=== PATIENT | female | born 1950 | race Caucasian/White ===

== ENCOUNTER 2021-11-05 05:21 | Inpatient (IN) ==
[2021-11-05] MEDS ORDERED: 0.9 % SODIUM CHLORIDE 1,000 ML IV ONE ×2 (05:25→06:03)
--- NOTE | 2021-11-05 05:25 | Emergency Department Note ---
Abdominal Pain HPI General Chief Complaint: Syncope Stated Complaint: syncopy Time Seen by Provider: 11/05/21 05:25 Source: patient Mode of arrival: EMS Limitations: no limitations History of Present Illness HPI Narrative: Narrative: 71-year-old female returns to the emergency department because of syncope. The patient was seen yesterday with fever. She had a UTI. She was given ceftriaxone 1 g IV and discharged with a prescription for Keflex 500 mg p.o. 3 times daily to be begun 24 hours later. During the night the patient continued to have fever at home. At 4 AM she got up and fell down/passed out. She was shivering during the night that she is unaware of having fever at home. She denies any pain denies dysuria. She denies being hurt when she collapsed on the floor. 911 was called and the patient was transported to our facility. Patient states she feels lightheaded (patient noted to have low blood pressure). States she did not feel well getting up at home because it made her lightheaded again. Symptoms have been constant after awakening tonight with this. Nothing has made it better so far except staying supine. No associated pain. Related Data Home Medications Medication Instructions Recorded Confirmed antiarthritic combination no.2 900 900 mg PO BID 07/06/17 10/28/21 mg tablet (glucosamine-chondroitin) calcium carbonate 500 mg-vitamin 1 tab PO BID 07/06/17 10/28/21 D3 10 mcg (400 unit) tablet (Calcium 500 + D) ginkgo biloba 40 mg capsule 40 mg PO BID 07/06/17 10/28/21 omega-3 fatty acids 1,000 mg 1,000 mg PO QDAY 07/06/17 10/28/21 capsule (Fish Oil Concentrate) colestipol 1 gram tablet 1 g PO .COMPLEX tab 10/23/19 10/28/21 Previous Rx's Medication Instructions Recorded estradiol 1 mg tablet 1 mg PO QDAY #90 tab 10/21/20 ibuprofen 600 mg tablet 600 mg PO Q8H PRN #20 tab 12/17/20 triamterene 37.5 1 tab PO QDAY #90 tab 01/02/21 mg-hydrochlorothiazide 25 mg tablet pravastatin 10 mg tablet 10 mg PO QHS #90 tab 03/17/21 amlodipine 5 mg tablet 5 mg PO QDAY #90 tab 06/12/21 duloxetine 40 mg capsule,delayed 40 mg PO QDAY #90 cap 08/26/21 release ondansetron 4 mg disintegrating 4 mg PO Q8H PRN #30 tab 09/22/21 tablet potassium chloride 10 mEq 10 meq PO QDAY #90 tab 10/20/21 tablet,extended release cephalexin 500 mg capsule 500 mg PO TID #20 cap 11/04/21 ondansetron 4 mg disintegrating 4 mg PO Q8H PRN #6 tab 11/04/21 tablet Allergies Allergy/AdvReac Type Severity Reaction Status Date / Time dexamethasone [From Decadron] AdvReac Severe Flushing,pa Verified 11/05/21 05:29 in metoclopramide [From Reglan] AdvReac Severe Shakiness Verified 11/05/21 05:29 hydrocodone AdvReac Mild vomiting Verified 11/05/21 05:29 tramadol AdvReac Vomiting Verified 11/05/21 05:29 Review of Systems ROS ROS Narrative: Narrative: Constitutional: Reports fever Eyes: Denies eye pain ENT ED: Denies throat pain or rhinorrhea Cardiovascular: Denies chest pain Respiratory: Denies shortness of breath or cough Gastrointestinal: Denies abdominal pain, nausea or vomiting Genitourinary: Denies dysuria Musculoskeletal: Reports back pain (Mild bilateral lumbar pain.) Integumentary: Denies rash Neurological: Reports headache Psychiatric: Denies anxiety Allergic/Immunologic: Denies facial swelling PFSH Narrative Patient History Narrative: Narrative: Medical/Surgical/Family History All Active Problems (Updated 11/05/21 @ 07:47 by José Miguel Beckett MD) Sepsis due to urinary tract infection (Acute) Sepsis due to urinary tract infection (Acute) 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) Acute neck pain (Acute) Medicare annual wellness visit, initial (Acute) Osteoarthritis of right hip (Acute) Weight loss (Acute) Motion sickness (Chronic) Tubular adenoma (Chronic) Myofascial pain (Chronic) Vaginal prolapse (Chronic) Stress (Chronic) Hip pain (Chronic) Pelvic relaxation (Chronic) Thoracic back pain (Acute) Back pain (Chronic) Intentional weight loss (Chronic) Seborrheic keratoses (Chronic) Enterocele (Chronic) Rectocele (Chronic) Neck pain (Chronic) Osteoarthritis (Chronic) Rectal irritation (Chronic) 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) Greater trochanteric bursitis of right hip (Chronic) Cervical spinal stenosis (Chronic) Greater trochanteric bursitis of both hips (Chronic) History of colonoscopy (Chronic) Positional vertigo (Chronic) Vasomotor instability (Chronic) Seborrheic dermatitis (Chronic) Rosacea (Chronic) Rectocele (Chronic) Proctitis (Chronic) Pelvic relaxation (Chronic) Paresthesia (Chronic) Hypertension, essential (Chronic) Hyperlipidemia (Chronic) Hormone replacement therapy (Chronic) Fibrocystic breast disease (Chronic) Fatigue (Chronic) Dermatitis (Chronic) Cystocele (Chronic) Chest pain (Chronic) Bursitis (Chronic) Medical History Back pain Much improved on Cymbalta She also takes ibuprofen 600 mg once daily Bursitis Greater trochanteric Cervical radiculopathy Cervical spinal stenosis Consider referral back to [facility] if exacerbations increase in frequency or worsen. Chest pain Intermittent atypical Cystocele Dermatitis Facial and Arm Diarrhea Resolved. She had her surgery to repair her pelvic prolapse, and this resolved her diarrhea. Drug-induced nausea and vomiting Enterocele Fatigue Fibrocystic breast disease History of Foraminal stenosis of cervical region Left C4-5 & C5-6 Greater trochanteric bursitis of both hips Corticosteroid injections to bilateral bursas today. Tolerated well. Greater trochanteric bursitis of right hip Received a dose of morphine in the ER last month, which helped at the time, and states that she is doing well now Steroid injections help when needed History of ovarian cancer Hormone replacement therapy She continues on HRT for hot flashes, understands the potential risks, and does not want to reduce the dose Hyperlipidemia Well-controlled on pravastatin 10 mg nightly. Tolerated well. Hypertension, essential Well-controlled on amlodipine 10 mg daily and triamterenehydrochlorothiazide 37.5-25 mg daily. Slightly overtreated. Decrease amlodipine to 5 mg daily and monitor blood pressure once every week or 2. Goal of around 120-130/80. Hypokalemia Potassium 3.0 ER last month Likely secondary to diuretics Start KCl 10 mEq daily We will check potassium today also Hyponatremia Hyponatremia Inflamed seborrheic keratosis Right shoulder. Treated with cryotherapy today. Tolerated well. Intentional weight loss 37 pounds Medicare annual wellness visit, initial Motion sickness Long history of nausea. Patient takes Zofran occasionally which helps. Muscle pain Muscle spasms Neck pain Much improved on Cymbalta She also takes ibuprofen 600 mg once daily Osteoarthritis Osteoarthritis cervical spine Left trapezius pain. Paresthesia Pelvic relaxation Personal history of ovarian cancer Remote History Positional vertigo Proctitis Ulcerative Rectal irritation Recurring Rectocele Rectocele Rosacea Seborrheic dermatitis Vasomotor instability Patient understands risks of taking estradiol is hormone replacement therapy, and wants to continue. Weight loss Approximately 40 pound weight loss, which is partly intentional. She states the last 10 pounds were unintentional. She states that his now plateaued. Weight does appear to be stable over the last several months. Patient will continue to monitor weight at home. Surgical History History of cataract surgery 2012 bilateral History of colonoscopy 05/27/2012 Micro: Hyperplastic Polyp. [address] Sandoval. 03/01/2019 TA. 3-year follow-up. 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 Right Upper Chin Lesion: Neurotized Intradermal Nevus, Nevus cells present at lateral resection margin. History of tonsillectomy Family History Father Chronic obstructive pulmonary disease Mother Cardiac disease Social History Smoking Status: Never smoker Alcohol Intake Frequency: does not drink Substance Use: does not use Exam Narrative Narrative: Narrative: Elderly female lying in bed with the sense of spinning in her head while her blood pressure had an MAP of 40. Patient was communicative and appropriate. No tenderness with examination of the head General Limitations: no limitations General appearance: Present alert and in distress Head Head: Present atraumatic, normocephalic, normal inspection and other (I did not find any signs of trauma.) Eye Eye: Present normal appearance, PERRL, EOMI, miosis (constriction) and other (Discs sharp); Absent nystagmus or periorbital swelling ENT ENT: Present normal oropharynx, mucous membranes dry and TM's normal bilaterally Neck Neck: Present normal inspection and trachea midline Respiratory Respiratory: Present normal lung sounds bilaterally; Absent respiratory distress Cardiovascular Cardiovascular: Present regular rate and normal rhythm Adbominal Abdominal: Present soft; Absent distention, tenderness, guarding, rebound or rigidity Extremities Extremities: Present normal inspection; Absent tenderness Back Back: Present L-S tenderness Neurological Neurological: Present alert and oriented X3; Absent normal gait Psychiatric Psychiatric: Present normal affect and normal mood Skin Skin: Present warm (WNL) and dry Course Vital Signs Vital signs: Vital Signs Temperature 101.8 F H 11/05/21 05:22 Pulse Rate 73 11/05/21 05:22 Respiratory Rate 20 11/05/21 05:22 Blood Pressure 87/44 11/05/21 05:22 Pulse Oximetry (%) 94 11/05/21 05:22 Temperature 101.8 F H 11/05/21 07:43 Pulse Rate 109 H 11/05/21 07:32 Respiratory Rate 27 H 11/05/21 07:32 Blood Pressure 130/88 11/05/21 07:32 Pulse Oximetry (%) 100 11/05/21 07:[address] [facility] MDM Narrative Medical decision making narrative: Narrative: Elderly female seen in the emergency department 1 day before with a diagnosis of UTI and fever. Treated with ceftriaxone IV 1 g. Patient was feeling much better and wished to go home. Was discharged. Patient ambulated without assistance at that time. Patient now with dizziness/syncope at home with very low blood pressure. Differential diagnosis includes sepsis, he urosepsis, stroke, intracranial bleed, dehydration, infected kidney stone, other. IV was established in the ambulance and patient was bolused 500 mL prior to arrival. On arrival she was bolused an additional 2000 milliliters of normal saline to achieve greater than 30 mL/kg of normal saline for this 60 kg woman. Blood pressure was noted to be low with initial blood pressure of 87/44. Repeat blood pressure was 52/40 with an MAP of 45. Levophed was then ordered and begun with a recheck blood pressure of 80/39 prior to instituting it. Blood pressure was 139/64 the first time it was checked after the initiation of Levophed. Blood cultures CBC CMP and lactic acid were ordered and are pending. EKG showed a sinus rhythm of 72 with no ischemic changes. Chest x-ray showed borderline cardiomegaly. No acute infiltrates or effusions noted. No acute pathology appreciated. Pending radiology review. Patient rechecked at 0635 with blood pressure at 139/64; patient stated that dijyoti ziness was much improved for the last 5 or 10 minutes. Patient will have Zosyn administered followed by Андрей. Patient will be given 975 mg of acetaminophen p.o. Covid test and influenza test have been ordered (Yessi). CBC showed a white count of 18,600. 81% neutrophils, 5% lymphocytes, 14% mo nocytes. Hemoglobin was low at 10.2 with hematocrit of 29.4 platelet count 247k. CMP, lactic acid, UA, still pending. Covid test negative influenza A negative influenza B negative. 0745: Case discussed with Dr. Nur, the hospitalist. He accepts the patient and will admit to the hospital for further care. Lab Data Result diagrams: 11/05/21 05:28 11/05/21 05:28 Labs: Lab Results 11/05/21 11/05/21 11/05/21 Range/Units 04:45 05:28 05:28 WBC 18.6 H (4.5-11.0) K/mcL RBC 3.22 L (3.59-5.38) M/mcL Hgb 10.2 L (11.2-15.7) g/dL Hct 29.4 L (34.1-44.9) % MCV 91.3 (80.0-100.0) fL MCH 31.7 (26.0-34.0) pg MCHC 34.7 (31.0-36.0) g/dL RDW 13.0 (11.5-14.5) % Plt Count 242 (140-440) K/mcL MPV 10.2 (7.4-10.4) fL Neut % (Auto) 80.7 H (38.0-78.0) % Lymph % (Auto) 4.7 L (15.5-49.0) % [place] % (Auto) 13.9 H (1.0-12.0) % Eos % (Auto) 0.4 (0.0-7.0) % Baso % (Auto) 0.3 (0.0-2.0) % Lymph # (Auto) 0.88 L (1.50-4.80) K/mcL [place] # (Auto) 2.58 H (0.10-0.90) K/mcL Eos # (Auto) 0.08 (0.00-0.70) K/mcL Baso # (Auto) 0.05 (0.00-0.30) K/mcL Absolute Neutrophils 15.00 H (1.80-8.00) K/mcL Sodium 130 L (133-145) mmol/L Potassium 3.1 L (3.3-5.1) mmol/L Chloride 97 (96-108) mmol/L Carbon Dioxide 23 (22-30) mmol/L Anion Gap 10.0 (8.0-16.0) BUN 11 (8-23) mg/dL Creatinine 0.9 (0.6-1.1) mg/dL GFR Calculation 63 Glucose 121 H (70-105) mg/dL Calcium 7.6 L (8.6-10.4) mg/dL Total Bilirubin 0.4 (0.1-1.0) mg/dL AST 25 (<32) U/L ALT 21 (<40) U/L Alkaline Phosphatase 50 (39-117) U/L Lactate Dehydrogenase 123 L (135-225) U/L Total Protein 5.2 L (5.9-8.4) gm/dL Albumin 3.0 L (3.2-5.2) gm/dL Globulin 2.2 (2.2-3.7) gm/dL Albumin/Globulin Ratio 1.4 (1.0-2.3) Urine Color Yellow Urine Appearance Slightly cloudy A (Clear) Urine pH 6.5 (5.0-9.0) Ur Specific [place] 1.015 (1.000-1.035) Urine Protein Trace A (Negative) mg/dL Urine Glucose (UA) Negative (Negative) mg/dL Urine Ketones Negative (Negative) mg/dL Urine Occult Blood Moderate A (Negative) raheem/mcL Urine Nitrate Negative (Negative) Urine Bilirubin Negative (Negative) mg/dL Urine Urobilinogen Normal mg/dL Ur Leukocyte Esterase Moderate A (Negative) /uL Urine RBC 10 H (0-3) /hpf Urine WBC > 182 H (0-4) /hpf Ur Squamous Epith Cells 0 (0-4) /hpf Ur Transition Epith Cell 1 (0-2) /hpf Urine Bacteria None (0) /hpf Ur Culture Indicated? yes ED POC Tests ED POC Tests: ALEX - Influenza A Negative ALEX - Influenza B Negative ALEX - SARS Antigen Negative EKG Data EKG #1: EKG attestation: Yes I reviewed and interpreted this EKG. 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 hold until patient requests refill duloxetine 40 mg capsule,delayed release(DR/EC) 40 mg PO QDAY Qty: 90 3RF ondansetron 4 mg tablet,disintegrating 4 mg PO Q8H PRN (Reason: nausea and vomiting) Qty: 30 1RF potassium chloride 10 mEq tablet extended release 10 meq PO QDAY Qty: 90 3RF omega-3 fatty acids [Fish Oil Concentrate] 1,000 mg capsule 1,000 mg PO QDAY 0RF calcium carbonate-vitamin D3 [Calcium 500 + D] 500 mg(1,250mg) -400 unit tablet 1 tab PO BID 0RF antiarthritic combination no.2 [glucosamine-chondroitin] 900 mg tablet 900 mg PO BID 0RF ginkgo biloba 40 mg capsule 40 mg PO BID 0RF colestipol 1 gram tablet 1 g PO .COMPLEX 0RF Label Comments: Rx from Michelle Mustafa Rx Instructions: 1 g PO 2-6x daily; ibuprofen 600 mg tablet 600 mg PO Q8H PRN (Reason: pain) Qty: 20 0RF cephalexin 500 mg capsule 500 mg PO TID Qty: 20 0RF ondansetron 4 mg tablet,disintegrating 4 mg PO Q8H PRN (Reason: nausea and vomiting) Qty: 6 0RF
[2021-11-05] MEDS ORDERED: 0.9 % SODIUM CHLORIDE 500 ML IV ONE (06:00)
[2021-11-05] MEDS ORDERED: PIPERACILLIN SODIUM/TAZOBACTAM 3.375 GM in DEXTROSE 5% IN WATER 50 ML IV ONE (06:10)
[2021-11-05] MEDS ORDERED: VANCOMYCIN 1,000 MG in 0.9 % SODIUM CHLORIDE 250 ML IV ONE (06:10)
[2021-11-05] MEDS: NOREPINEPHRINE BITARTRATE 8 MG in 0.9 % SODIUM CHLORIDE 242 ML IV SCH (06:11)
[2021-11-05 06:49] LABS: Basophils # (Auto) 0.05 K/mcL (0.00-0.30); Basophils % (Auto) 0.3 % (0.0-2.0); Eosinophils # (Auto) 0.08 K/mcL (0.00-0.70); Eosinophils % (Auto) 0.4 % (0.0-7.0); Hematocrit 29.4 % (34.1-44.9); Hemoglobin 10.2 g/dL (11.2-15.7); Lymphocytes # (Auto) 0.88 K/mcL (1.50-4.80); Lymphocytes % (Auto) 4.7 % (15.5-49.0); Mean Cell Volume 91.3 fL (80.0-100.0); Mean Corpuscular HGB Conc 34.7 g/dL (31.0-36.0); Mean Platelet Volume 10.2 fL (7.4-10.4); Monocytes # (Auto) 2.58 K/mcL (0.10-0.90); Monocytes % (Auto) 13.9 % (1.0-12.0); Neutrophils % (Auto) 80.7 % (38.0-78.0); Platelet Count 242 K/mcL (140-440); RBC 3.22 M/mcL (3.59-5.38); WBC 18.6 K/mcL (4.5-11.0)
[2021-11-05] MEDS ORDERED: ACETAMINOPHEN 325 MG TABLET PO ONE ×2 (06:52→19:48)
[2021-11-05 06:55] LABS: Appearance,Urine Slightly Cloudy (Clear); Bilirubin,Urine Negative (Negative); Color,Urine Yellow; Culture Indicated,Urine yes; Glucose,Urine (UA) Negative (Negative); Ketones,Urine Negative (Negative); Leukocyte Esterase,Urine Moderate /uL (Negative); Nitrate,Urine Negative (Negative); PH,Urine 6.5 (5.0-9.0); Protein,Urine Trace mg/dL (Negative); Specific Gravity,Urine 1.015 (1.000-1.035); Urine Blood Moderate ery/mcL (Negative); Urine RBC 10 /hpf (0-3); Urine Squamous Epithelial Cell 0 /hpf (0-4); Urine Transitional Epi Cells 1 /hpf (0-2); Urine WBC > 182 /hpf (0-4); Urobilinogen,Urine Normal
[2021-11-05 07:17] LABS: ALT/SGPT 21 U/L (<40); AST/SGOT 25 U/L (<32); Albumin/Globulin Ratio 1.4 (1.0-2.3); Alkaline Phosphatase 50 U/L (39-117); Bilirubin,Total 0.4 mg/dL (0.1-1.0); Blood Urea Nitrogen 11 mg/dL (8-23); Calcium 7.6 mg/dL (8.6-10.4); Carbon Dioxide 23 mmol/L (22-30); Chloride 97 mmol/L (96-108); Globulin 2.2 gm/dL (2.2-3.7); Glomerular Filtration Rate 63; Glucose 121 mg/dL (70-105); Lactate Dehydrogenase 123 U/L (135-225)
[2021-11-05] MEDS ORDERED: ACETAMINOPHEN 1,000 MG/100 ML BAG IV ONE (07:35)
[2021-11-05] MEDS ORDERED: ONDANSETRON 4 MG/2 ML VIAL IV ONE (07:35)
[2021-11-05] MEDS: 0.9 % SODIUM CHLORIDE 250 ML IV SCH ×2 (07:53→23:14)
--- NOTE | 2021-11-05 08:17 | Internal Med History&Physical ---
HPI History of Present Illness Patient information: Note initiated : 11/05/21 at 8:05 am Service Date, if different from initiated Date: [] Patient: Florecita Branch a 71 y/o F admitted on for Syncope . Chief Complaint: [Shivering Chief complaint: Shivering History of present illness: Ms. Branch is a 71 year old F history of generalized osteoarthritis, essential HTN, mixed dyslipidemia, uterine prolapse, presenting with 2-day history of shivering and upper back pain. There is no prior similar history. No recent history of urinary tract infections. She presented to our ED yesterday for shivering and upper back pain and was being diagnosed with urinary tract infections. She received a dose of Rocephin and was sent home. Earlier this morning she could not stop shivering together with subjective fever. She is also committing of nausea. She is coming of upper back pain. She called EMS which brought her back to our ED for reevaluations. Her blood pressure was found to be low so she was started on Levophed as pressor. 30 cc/kg IV fluid boluses were started as part of the resuscitation's measures and admission request was called for pyelonephritis with septic shock. Labs significant for leukocytosis with WBC 18.6. Serum sodium 130 and serum potassium 3.1. Blood glucose 121. Lactic acid pending. Urine analysis suggest the presence of urinary tract infections. Constitutional Constitutional: Present chills and fever(s); Absent excessive sweating, fatigue or weakness EENT Eyes: Absent blurry vision, change in vision, loss of vision or other visual disturbances Ears: Absent decreased hearing or tinnitus Nose, mouth and throat: Absent abnormal hearing, dry mouth, headache(s), nasal congestion or sore throat Cardiovascular Cardiovascular: Absent chest pain, chest pain at rest, edema, irregular heart rhythm or palpatations Respiratory Respiratory: Absent cough, dyspnea or wheezing Gastrointestinal Gastrointestinal: Present nausea; Absent abdominal pain, constipation, diarrhea or vomiting Musculoskeletal Musculoskeletal: Present back pain; Absent deformity, limited range of motion, muscle cramps, muscle weakness or numbness Integumentary Integumentary: Absent lesions, rash or wounds Neurological Neurological: Absent focal weakness, headache(s) or numbness Psychiatric Psychiatric: Absent anxiety, depression or hallucinations PFSH PFSH All Active Problems (Updated 11/05/21 @ 08:12 by Kashif Nur MD) Anemia, normocytic normochromic (Acute) Hypokalemia (Acute) Hyponatremia (Acute) Septic shock (Acute) Pyelonephritis (Acute) Sepsis due to urinary tract infection (Acute) Sepsis due to urinary tract infection (Acute) 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) Acute neck pain (Acute) Medicare annual wellness visit, initial (Acute) Osteoarthritis of right hip (Acute) Weight loss (Acute) Motion sickness (Chronic) Tubular adenoma (Chronic) Myofascial pain (Chronic) Vaginal prolapse (Chronic) Stress (Chronic) Hip pain (Chronic) Pelvic relaxation (Chronic) Thoracic back pain (Acute) Back pain (Chronic) Intentional weight loss (Chronic) Seborrheic keratoses (Chronic) Enterocele (Chronic) Rectocele (Chronic) Neck pain (Chronic) Osteoarthritis (Chronic) Rectal irritation (Chronic) 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) Greater trochanteric bursitis of right hip (Chronic) Cervical spinal stenosis (Chronic) Greater trochanteric bursitis of both hips (Chronic) History of colonoscopy (Chronic) Positional vertigo (Chronic) Vasomotor instability (Chronic) Seborrheic dermatitis (Chronic) Rosacea (Chronic) Rectocele (Chronic) Proctitis (Chronic) Pelvic relaxation (Chronic) Paresthesia (Chronic) Hypertension, essential (Chronic) Hyperlipidemia (Chronic) Hormone replacement therapy (Chronic) Fibrocystic breast disease (Chronic) Fatigue (Chronic) Dermatitis (Chronic) Cystocele (Chronic) Chest pain (Chronic) Bursitis (Chronic) Medical History Back pain Much improved on Cymbalta She also takes ibuprofen 600 mg once daily Bursitis Greater trochanteric Cervical radiculopathy Cervical spinal stenosis Consider referral back to [facility] if exacerbations increase in frequency or worsen. Chest pain Intermittent atypical Cystocele Dermatitis Facial and Arm Diarrhea Resolved. She had her surgery to repair her pelvic prolapse, and this resolv ed her diarrhea. Drug-induced nausea and vomiting Enterocele Fatigue Fibrocystic breast disease History of Foraminal stenosis of cervical region Left C4-5 & C5-6 Greater trochanteric bursitis of both hips Corticosteroid injections to bilateral bursas today. Tolerated well. Greater trochanteric bursitis of right hip Received a dose of morphine in the ER last month, which helped at the time, and states that she is doing well now Steroid injections help when needed History of ovarian cancer Hormone replacement therapy She continues on HRT for hot flashes, understands the potential risks, and does not want to reduce the dose Hyperlipidemia Well-controlled on pravastatin 10 mg nightly. Tolerated well. Hypertension, essential Well-controlled on amlodipine 10 mg daily and triamterenehydrochlorothiazide 37.5-25 mg daily. Slightly overtreated. Decrease amlodipine to 5 mg daily and monitor blood pressure once every week or 2. Goal of around 120-130/80. Hypokalemia Potassium 3.0 ER last month Likely secondary to diuretics Start KCl 10 mEq daily We will check potassium today also Hyponatremia Hyponatremia Inflamed seborrheic keratosis Right shoulder. Treated with cryotherapy today. Tolerated well. Intentional weight loss 37 pounds Medicare annual wellness visit, initial Motion sickness Long history of nausea. Patient takes Zofran occasionally which helps. Muscle pain Muscle spasms Neck pain Much improved on Cymbalta She also takes ibuprofen 600 mg once daily Osteoarthritis Osteoarthritis cervical spine Left trapezius pain. Paresthesia Pelvic relaxation Personal history of ovarian cancer Remote History Positional vertigo Proctitis Ulcerative Rectal irritation Recurring Rectocele Rectocele Rosacea Seborrheic dermatitis Vasomotor instability Patient understands risks of taking estradiol is hormone replacement therapy, and wants to continue. Weight loss Approximately 40 pound weight loss, which is partly intentional. She states the last 10 pounds were unintentional. She states that his now plateaued. Weight does appear to be stable over the last several months. Patient will continue to monitor weight at home. Surgical History History of cataract surgery 2012 bilateral History of colonoscopy 05/27/2012 Micro: Hyperplastic Polyp. [address] Sandoval. 03/01/2019 TA. 3-year follow-up. 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 Right Upper Chin Lesion: Neurotized Intradermal Nevus, Nevus cells present at lateral resection margin. History of tonsillectomy Family History Father Chronic obstructive pulmonary disease Mother Cardiac disease Social History household members: spouse housing: house lives independently: Yes marital status: education level: college occupational status: retired occupation: teacher other: 2 Adult Children, 4 Grandchildren smoking status: Never smoker alcohol intake frequency: does not drink substance use type: does not use MEDS/ALLERGIES Home Medications and Allergies Home Medications Medication Instructions Recorded Confirmed Type antiarthritic combination no.2 900 900 mg PO BID 07/06/17 10/28/21 History mg tablet (glucosamine-chondroitin) calcium carbonate 500 mg-vitamin 1 tab PO BID 07/06/17 10/28/21 History D3 10 mcg (400 unit) tablet (Calcium 500 + D) ginkgo biloba 40 mg capsule 40 mg PO BID 07/06/17 10/28/21 History omega-3 fatty acids 1,000 mg 1,000 mg PO QDAY 07/06/17 10/28/21 History capsule (Fish Oil Concentrate) colestipol 1 gram tablet 1 g PO .COMPLEX tab 10/23/19 10/28/21 History estradiol 1 mg tablet 1 mg PO QDAY #90 tab 10/21/20 10/28/21 Rx ibuprofen 600 mg tablet 600 mg PO Q8H PRN #20 tab 12/17/20 10/28/21 Rx triamterene 37.5 1 tab PO QDAY #90 tab 01/02/21 10/28/21 Rx mg-hydrochlorothiazide 25 mg tablet pravastatin 10 mg tablet 10 mg PO QHS #90 tab 03/17/21 10/28/21 Rx amlodipine 5 mg tablet 5 mg PO QDAY #90 tab 06/12/21 10/28/21 Rx duloxetine 40 mg capsule,delayed 40 mg PO QDAY #90 cap 08/26/21 10/28/21 Rx release ondansetron 4 mg disintegrating 4 mg PO Q8H PRN #30 tab 09/22/21 10/28/21 Rx tablet potassium chloride 10 mEq 10 meq PO QDAY #90 tab 10/20/21 10/28/21 Rx tablet,extended release cephalexin 500 mg capsule 500 mg PO TID #20 cap 11/04/21 Rx ondansetron 4 mg disintegrating 4 mg PO Q8H PRN #6 tab 11/04/21 Rx tablet Allergies Allergy/AdvReac Type Severity Reaction Status Date / Time dexamethasone [From Decadron] AdvReac Severe Flushing,pa Verified 11/05/21 05:29 in metoclopramide [From Reglan] AdvReac Severe Shakiness Verified 11/05/21 05:29 hydrocodone AdvReac Mild vomiting Verified 11/05/21 05:29 tramadol AdvReac Vomiting Verified 11/05/21 05:29 EXAM Constitutional Vitals: Temp Pulse Resp BP Pulse Ox 38.8 C H 108 H 27 H 132/54 96 11/05/21 07:43 11/05/21 08:01 11/05/21 08:01 11/05/21 08:01 11/05/21 08:01 General appearance: cooperative and moderate distress Exam: shivering Head Head exam: Present atraumatic and normocephalic Eye Eye exam: Present EOMI and PERRL ENT ENT exam: Present mucous membranes moist, normal exam and normal external ear exam Neck Neck exam: Present normal inspection; Absent lymphadenopathy, tenderness or thyromegaly Respiratory Respiratory exam: Absent accessory muscle use, respiratory distress or wheezes Cardiovascular Cardiovascular exam: Present normal rate and rhythm; Absent JVD GI/Abdominal GI/Abdominal exam: Present normal bowel sounds and soft; Absent organomegaly or tenderness Extremities Exam Extremities exam: Present full ROM, normal capillary refill and normal inspection; Absent tenderness Neurological Exam Neurological exam: Present alert, CN II-XII intact and oriented X3; Absent motor sensory deficit Psychiatric Psychiatric exam: Present normal affect and normal mood; Absent anxious or depressed Skin Skin exam: Present dry and intact DATA Data Completed and Pending Labs: Labs from last 24 hours 11/05/21 11/05/21 11/05/21 05:28 05:28 04:45 WBC 18.6 H RBC 3.22 L Hgb 10.2 L Hct 29.4 L MCV 91.3 MCH 31.7 MCHC 34.7 RDW 13.0 Plt Count 242 MPV 10.2 Neut % (Auto) 80.7 H Lymph % (Auto) 4.7 L [place] % (Auto) 13.9 H Eos % (Auto) 0.4 Baso % (Auto) 0.3 Lymph # (Auto) 0.88 L [place] # (Auto) 2.58 H Eos # (Auto) 0.08 Baso # (Auto) 0.05 Absolute Neutrophils 15.00 H Sodium 130 L Potassium 3.1 L Chloride 97 Carbon Dioxide 23 Anion Gap 10.0 BUN 11 Creatinine 0.9 GFR Calculation 63 Glucose 121 H Calcium 7.6 L Total Bilirubin 0.4 AST 25 ALT 21 Alkaline Phosphatase 50 Lactate Dehydrogenase 123 L Total Protein 5.2 L Albumin 3.0 L Globulin 2.2 Albumin/Globulin Ratio 1.4 Urine Color Yellow Urine Appearance Slightly cloudy A Urine pH 6.5 Ur Specific [place] 1.015 Urine Protein Trace A Urine Glucose (UA) Negative Urine Ketones Negative Urine Occult Blood Moderate A Urine Nitrate Negative Urine Bilirubin Negative Urine Urobilinogen Normal Ur Leukocyte Esterase Moderate A Urine RBC 10 H Urine WBC > 182 H Ur Squamous Epith Cells 0 Ur Transition Epith Cell 1 Urine Bacteria None Ur Culture Indicated? yes A/P Assessment and plan (1) Pyelonephritis: Status: Acute (2) Septic shock: Status: Acute (3) Osteoarthritis: Status: Chronic Qualifiers: Osteoarthritis location: multiple joints Osteoarthritis type: primary Qualified Code(s): M15.0 - Primary generalized (osteo)arthritis; M15.0 - Primary generalized (osteo)arthritis (4) Hyperlipidemia: Status: Chronic Comment: Well-controlled on pravastatin 10 mg nightly. Tolerated well. Qualifiers: Hyperlipidemia type: mixed hyperlipidemia Qualified Code(s): E78.2 - Mixed hyperlipidemia (5) Hypertension, essential: Status: Chronic Comment: Well-controlled on amlodipine 10 mg daily and triamterenehydrochlorothiazide 37.5-25 mg daily. Slightly overtreated. Decrease amlodipine to 5 mg daily and monitor blood pressure once every week or 2. Goal of around 120-130/80. (6) Hyponatremia: Status: Acute (7) Hypokalemia: Status: Acute (8) Anemia, normocytic normochromic: Status: Acute Narrative A/P Narrative: Assessment and Plans: 1. Pyelonephritis with septic shock: Admit to inpatient ICU telemetry Serial lactic acid Blood culture X2 Urine culture cbc w/ auto diff in the morning to trend WBC level 30cc/kg IV fluid bolus, followed by NS@150cc/hr Zosyn Tylenol PRN fever Levophed drip goal of MAP>=65mmHg 2. h/o essential HTN: Hold oral antihypertensives in face of septic shock 3. Mixed dyslipidemia: Continue statin therapy 4. anemia, normocytic normochromic: cbc w/ auto diff in the morning to trend H/H; transfuse pRBC if hemoglobin <7.0, active bleeding, or symptomatic 5. Hyponatremia: 30cc/kg IV fluid bolus, followed by NS@150cc/hr CMP in the morning to trend serum sodium level 6. Hypokalemia: Continue potassium chloride oral replacement CMP in the morning to trend serum potassium level Also check serum Mg level and replace if needed 7. Osteoarthritis: Continue pain meds from home regimen GI ppx: not currently indicated DVT ppx: Lovenox Code status: Full Prognosis: extremely guarded Disposition: inpatient ICU telemetry Critical Care Time: 1hr Time Spent With Patient Time: Total time spent is greater than 50% in coordination of care (as documented) at patient's floor/unit and/or counseling patient: Total time spent with greater than 50% in coordination of care (as documented) at patient's floor/unit and/or counseling patient:: Greater than 35 minutes
--- NOTE | 2021-11-05 09:08 | XRay Report ---
CLINICAL INFORMATION: Hypotension COMPARISON: 11/16/2018 TECHNIQUE: Portable FINDINGS: The heart is borderline enlarged. Mediastinum is unremarkable. There is mild distention of the upper lobe pulmonary vasculature. No definite edema. Lungs are clear. No effusions. IMPRESSION: Borderline CHF or volume overload. Please correlate with other supportive or refutive clinical information Interpreted and Authenticated by: Brent Cantu 11/05/21
[2021-11-05] MEDS: 0.9 % SODIUM CHLORIDE 1,000 ML IV SCH ×2 (10:00→19:49)
[2021-11-05] MEDS ORDERED: IPRATROPIUM/ALBUTEROL 3 ML AMPUL.NEB NEB PRN (10:03)
[2021-11-05] MEDS ORDERED: SENNOSIDES 8.8 MG/5 ML ML PT PRN (10:03)
[2021-11-05] MEDS ORDERED: COLESTIPOLL 1 GM TABLET PO PRN (10:03)
[2021-11-05] MEDS ORDERED: morphine 4 MG/ML VIAL IV PRN (10:03)
[2021-11-05 12:02] LABS: Phosphorous 1.5 mg/dL (2.5-4.5)
[2021-11-05] MEDS: PIPERACILLIN SODIUM/TAZOBACTAM 3.375 GM in DEXTROSE 5% IN WATER 50 ML IV SCH ×2 (12:07→17:34)
[2021-11-05] MEDS: ENOXAPARIN 40 MG/0.4 ML SYRINGE SQ SCH (12:07)
[2021-11-05] MEDS: POTASSIUM CHLORIDE 10 MEQ TABLET PO SCH (12:07)
[2021-11-05 12:08] LABS: ALT/SGPT 25 U/L (<40); AST/SGOT 28 U/L (<32); Albumin/Globulin Ratio 1.1 (1.0-2.3); Alkaline Phosphatase 62 U/L (39-117); Bilirubin,Total 0.8 mg/dL (0.1-1.0); Blood Urea Nitrogen 9 mg/dL (8-23); Calcium 7.3 mg/dL (8.6-10.4); Carbon Dioxide 19 mmol/L (22-30); Chloride 98 mmol/L (96-108); Globulin 2.7 gm/dL (2.2-3.7); Glomerular Filtration Rate 86; Glucose 134 mg/dL (70-105)
[2021-11-05] MEDS: DOCUSATE SODIUM 100 MG CAPSULE PO SCH ×2 (12:08→19:49)
[2021-11-05] MEDS ORDERED: POTASSIUM CHLORIDE 20 MEQ TABLET PO ONE (12:09)
[2021-11-05] MEDS ORDERED: MAGNESIUM SULFATE 2 GM/50 ML BAG IV ONE (12:10)
[2021-11-05] MEDS: ESTRADIOL 1 MG TABLET PO SCH (12:13)
[2021-11-05] MEDS: 0.9 % SODIUM CHLORIDE 10 ML SYRINGE IV SCH ×2 (13:43→23:12)
--- NOTE | 2021-11-05 14:06 | Internal Med Progress Note ---
SUBJECTIVE Subjective Patient information: Note initiated : 11/06/21 at 2:00 pm Service Date, if different from initiated Date: [] Patient: Florecita Branch a 71 y/o F admitted on 11/05/21 for Syncope . Chief Complaint: [] Interval history: Ms. Branch is a 71 year old F history of generalized osteoarthritis, essential HTN, mixed dyslipidemia, uterine prolapse, presenting with 2-day history of shivering and upper back pain. There is no prior similar history. No recent history of urinary tract infections. She presented to our ED yesterday for jackie vering and upper back pain and was being diagnosed with urinary tract infections. She received a dose of Rocephin and was sent home. Earlier this morning she could not stop shivering together with subjective fever. She is also committing of nausea. She is coming of upper back pain. She called EMS which brought her back to our ED for reevaluations. Her blood pressure was found to be low so she was started on Levophed as pressor. 30 cc/kg IV fluid boluses were started as part of the resuscitation's measures and admission request was called for pyelonephritis with septic shock. Labs significant for leukocytosis with WBC 18.6. Serum sodium 130 and serum potassium 3.1. Blood glucose 121. Lactic acid pending. Urine analysis suggest the presence of urinary tract infections. 11/06: Sepsis physiology resolving, urine and blood cultures pending. Deescalated antibiotic treatment from Zosyn to Cefepime. CT KUB ordered. Physical exam Head: Atraumatic, normal inspection. Eyes: normal appearance, no scleral icterus. Neck: full ROM Respiratory: no respiratory distress. Cardiovascular: normal rate and rhythm, S1, S2. GI/Abdominal: soft, nontender, no guarding. Extremities: full range of motion, nontender. Neurological: CN II-XII intact, intact motor, intact sensation. Psychiatric: normal mood. Skin: warm, normal color Constitutional Vitals: Vital Signs Temp Pulse Resp BP Pulse Ox 99.6 F H 88 18 112/49 99 11/05/21 12:01 11/05/21 13:31 11/05/21 13:31 11/05/21 13:31 11/05/21 13:31 Period Temp Pulse Resp BP Sys/Hamm Pulse Ox Last 24 Hr 97.4 F-102.4 F 72-109 13-27 52-141/39-88 94-100 Intake and Output 11/05/21 11/05/21 11/05/21 05:59 13:59 21:59 Intake Total 3032 Output Total 1025 Balance 2006 Weight 59.874 kg 64.909 kg Patient Weight 11/06/21 05:59 Weight 64.909 kg Intake & Output: Intake & Output 11/05/21 11/05/21 11/05/21 05:59 13:59 21:59 Intake Total 3032 Output Total 1025 Balance 2006 Weight 59.874 kg 64.909 kg Intake: IV 3032 Sodium Chloride 0.9% 1,000 ml @ 2000 Wide Open IV BOLUS ONE Rx#: [id number] Sodium Chloride 0.9% 250 ml @ 10 20 mls/hr IV .[id number] [facility] Rx#: [id number] Sodium Chloride 0.9% 500 ml @ 500 Wide Open IV BOLUS ONE Rx#: [id number] Levophed 8 mg In Sodium 72 Chloride 0.9% 242 ml @ 10 MCG/ MIN 18.75 mls/hr IV Q14H [facility] Rx #:[id number] Zosyn 3.375 gm In Dextrose 5% 100 in Water 50 ml @ 100 mls/hr IV Q6H [facility] Rx#:[id number] Vancomycin 1,000 mg In Sodium 250 Chloride 0.9% 250 ml @ 250 mls/ hr IV ONCE ONE Rx#:[id number] Output: Void Amount 1025 Other: Urine Appearance Clear Straight Cloudy Urine Color Bright Yellow Straight Dark Yellow Urine Odor Normal OBJ DATA Labs CBC & Chem 7: 11/06/21 05:08 11/06/21 05:08 Labs: Abnormal Lab Results 11/05/21 11/05/21 11/05/21 10:35 05:28 05:28 WBC 18.6 H RBC 3.22 L Hgb 10.2 L Hct 29.4 L Neut % (Auto) 80.7 H Lymph % (Auto) 4.7 L [place] % (Auto) 13.9 H Lymph # (Auto) 0.88 L [place] # (Auto) 2.58 H Absolute Neutrophils 15.00 H Sodium 130 L 130 L Potassium 2.8 L* 3.1 L Carbon Dioxide 19 L Glucose 134 H 121 H Calcium 7.3 L 7.6 L Phosphorus 1.5 L Magnesium 1.4 L Lactate Dehydrogenase 123 L Total Protein 5.7 L 5.2 L Albumin 3.0 L 3.0 L Urine Appearance Urine Protein Urine Occult Blood Ur Leukocyte Esterase Urine RBC Urine WBC 11/05/21 04:45 WBC RBC Hgb Hct Neut % (Auto) Lymph % (Auto) [place] % (Auto) Lymph # (Auto) [place] # (Auto) Absolute Neutrophils Sodium Potassium Carbon Dioxide Glucose Calcium Phosphorus Magnesium Lactate Dehydrogenase Total Protein Albumin Urine Appearance Slightly cloudy A Urine Protein Trace A Urine Occult Blood Moderate A Ur Leukocyte Esterase Moderate A Urine RBC 10 H Urine WBC > 182 H Meds: Medications Acetaminophen (Acetaminophen 325 Mg Tablet) 650 mg PO Q4-6HP PRN; Protocol PRN Reason: Per Pain Protocol/Fever > 101 Albuterol/Ipratropium (Ipratropium/Albuterol 3 Ml Ampul.Neb) 3 ml NEB Q4HRT PRN PRN Reason: Wheezing Calcium/Vitamin D (Calcium W/Vit D3 500 Mg Tablet) 500 mg PO BID [facility] Colestipol HCl (Colestipoll 1 Gm Tablet) 1 gm PO Q4HP PRN PRN Reason: Diarrhea Docusate Sodium (Docusate Sodium 100 Mg Capsule) 100 mg PO BID [facility] Last Admin: 11/05/21 12:08 Dose: 100 mg Documented by: Duloxetine HCl (Duloxetine 20 Mg Capsule) 40 mg PO DAILY [facility] Enoxaparin Sodium (Enoxaparin 40 Mg/0.4 Ml Syringe) 40 mg SQ DAILY [facility] Last Admin: 11/05/21 12:07 Dose: 40 mg Documented by: Estradiol (Estradiol 1 Mg Tablet) 1 mg PO QDAY [facility] Last Admin: 11/05/21 12:13 Dose: 1 mg Documented by: Fish Oil (Fish Oil 1,000 Mg Capsule) 1,000 mg PO DAILY [facility] Glucosamine/Chondroitin (Glucosamine/Chondroitin Sulf A 1 Cap Capsule) 1 cap PO BID [facility] Norepinephrine Bitartrate 8 mg (/ Sodium Chloride) 250 mls @ 18.75 mls/hr IV Q14H [facility]; Protocol Last Titration: 11/05/21 10:00 Dose: 6 mcg/min, 11.25 mls/hr Documented by: Sodium Chloride (Sodium Chloride 0.9%) 250 mls @ 20 mls/hr IV .[id number] [facility] Last Infusion: 11/05/21 09:52 Dose: 20 mls/hr Documented by: Sodium Chloride (Sodium Chloride 0.9%) 1,000 mls @ 150 mls/hr IV .[id number] [facility] Last Admin: 11/05/21 10:00 Dose: 150 mls/hr Documented by: Piperacillin Sod/Tazobactam (Sod 3.375 gm/ Dextrose) 50 mls @ 100 mls/hr IV Q6H [facility]; Protocol Last Infusion: 11/05/21 13:08 Dose: Infused Documented by: Magnesium Sulfate (Magnesium Sulfate) 2 gm in 50 mls @ 25 mls/hr IV ONCE ONE Stop: 11/05/21 14:09 Last Admin: 11/05/21 12:31 Dose: 25 mls/hr Documented by: Ibuprofen (Ibuprofen 600 Mg Tablet) 600 mg PO Q8H PRN; Protocol PRN Reason: pain Morphine Sulfate (Morphine 4 Mg/Ml Vial) 4 mg IV Q2HP PRN; Protocol PRN Reason: Per Pain Protocol Ondansetron HCl (Ondansetron 4 Mg/2 Ml Vial) 4 mg IV Q4-6HP PRN; Protocol PRN Reason: Nausea And Vomiting Ginkgo Biloba 40 Mg (Capsule) 1 dose PO BID [facility] Potassium Chloride (Potassium Chloride 10 Meq Tablet) 10 meq PO QDAY [facility] Last Admin: 11/05/21 12:07 Dose: 10 meq Documented by: Potassium/Phosphorus/Sodium (Neutra Phos 1 Packet) 2 packet PO BID [facility] Stop: 11/06/21 21:01 Senna (Sennosides 8.8 Mg/5 Ml Ml) 8.8 mg PT DAILYP PRN PRN Reason: Constipation Simvastatin (Simvastatin 10 Mg Tablet) 5 mg PO HS [facility] Sodium Chloride (0.9 % Sodium Chloride 10 Ml Syringe) 10 ml IV Q8 [facility] Last Admin: 11/05/21 13:43 Dose: Not Given Documented by: A/P Narrative A/P Narrative: Assessment: 71-year-old female with a history of hypertension, dyslipidemia, ut erine prolapse, osteoarthritis admitted for sepsis secondary to a pyelonephritis. #Sepsis secondary to pyelonephritis #Hypokalemia #Hypomagnesemia #Hypophosphatemia #Hyponatremia #Essential hypertension #Dyslipidemia #Osteoarthritis Plan -Start Cefepime, discontinue Zosyn. -Discontinue IV fluids. -Follow blood and urine cultures. -CT KUB to evaluate for ureteral stones. -Replace electrolytes as needed. -Hold home oral antihypertensives for now. -Continue essential home medications. -DVT prophylaxis: Lovenox -CODE STATUS: Full -Disposition: Home when stable Time Spent With Patient Time: Total time spent is greater than 50% in coordination of care (as documented) at patient's floor/unit and/or counseling patient: QUALITY VTE Deep Vein Thrombosis/Pulmonary Embolism Present on Admission: No
[2021-11-05] MEDS: IBUPROFEN 600 MG TABLET PO PRN (19:48)
[2021-11-05] MEDS: SIMVASTATIN 10 MG TABLET PO SCH (19:48)
[2021-11-05] MEDS: NEUTRA PHOS 1 PACKET PO SCH (19:48)
[2021-11-05] MEDS: GLUCOSAMINE/CHONDROITIN SULF A 1 CAP CAPSULE PO SCH (19:49)
[2021-11-05] MEDS: ACETAMINOPHEN 325 MG TABLET PO PRN (19:49)
[2021-11-05] MEDS: CALCIUM W/VIT D3 500 MG TABLET PO SCH (19:49)
[2021-11-06] MEDS: PIPERACILLIN SODIUM/TAZOBACTAM 3.375 GM in DEXTROSE 5% IN WATER 50 ML IV SCH ×2 (00:29→05:51)
[2021-11-06] MEDS: 0.9 % SODIUM CHLORIDE 1,000 ML IV SCH ×3 (03:45→11:39)
[2021-11-06] MEDS: 0.9 % SODIUM CHLORIDE 10 ML SYRINGE IV SCH ×3 (05:51→20:44)
[2021-11-06] MEDS: NOREPINEPHRINE BITARTRATE 8 MG in 0.9 % SODIUM CHLORIDE 242 ML IV SCH (05:51)
[2021-11-06] MEDS ORDERED: NOREPINEPHRINE BITARTRATE 8 MG in 0.9 % SODIUM CHLORIDE 242 ML IV PRN (07:00)
[2021-11-06 07:03] LABS: Basophils # (Auto) 0.05 K/mcL (0.00-0.30); Basophils % (Auto) 0.4 % (0.0-2.0); Eosinophils # (Auto) 0.08 K/mcL (0.00-0.70); Eosinophils % (Auto) 0.6 % (0.0-7.0); Hematocrit 29.3 % (34.1-44.9); Hemoglobin 9.7 g/dL (11.2-15.7); Lymphocytes # (Auto) 1.41 K/mcL (1.50-4.80); Lymphocytes % (Auto) 11.4 % (15.5-49.0); Mean Cell Volume 95.8 fL (80.0-100.0); Mean Corpuscular HGB Conc 33.1 g/dL (31.0-36.0); Mean Platelet Volume 10.6 fL (7.4-10.4); Monocytes % (Auto) 13.7 % (1.0-12.0); Neutrophils % (Auto) 73.9 % (38.0-78.0); Platelet Count 191 K/mcL (140-440); RBC 3.06 M/mcL (3.59-5.38); Red Cell Distribution Width 13.3 % (11.5-14.5); WBC 12.4 K/mcL (4.5-11.0)
[2021-11-06 07:20] LABS: ALT/SGPT 58 U/L (<40); AST/SGOT 68 U/L (<32); Albumin 2.5 gm/dL (3.2-5.2); Albumin/Globulin Ratio 1.1 (1.0-2.3); Alkaline Phosphatase 84 U/L (39-117); Bilirubin,Total 0.3 mg/dL (0.1-1.0); Blood Urea Nitrogen 6 mg/dL (8-23); Calcium 7.5 mg/dL (8.6-10.4); Carbon Dioxide 19 mmol/L (22-30); Chloride 106 mmol/L (96-108); Globulin 2.3 gm/dL (2.2-3.7); Glomerular Filtration Rate 96; Glucose 92 mg/dL (70-105)
[2021-11-06] MEDS: ENOXAPARIN 40 MG/0.4 ML SYRINGE SQ SCH (08:55)
[2021-11-06] MEDS: NEUTRA PHOS 1 PACKET PO SCH ×2 (08:55→21:23)
[2021-11-06] MEDS: GLUCOSAMINE/CHONDROITIN SULF A 1 CAP CAPSULE PO SCH ×2 (08:55→21:23)
[2021-11-06] MEDS: CALCIUM W/VIT D3 500 MG TABLET PO SCH ×2 (08:55→21:24)
[2021-11-06] MEDS: ESTRADIOL 1 MG TABLET PO SCH (08:55)
[2021-11-06] MEDS: POTASSIUM CHLORIDE 10 MEQ TABLET PO SCH (08:55)
[2021-11-06] MEDS: FISH OIL 1,000 MG CAPSULE PO SCH (08:55)
[2021-11-06] MEDS: DULoxetine 20 MG CAPSULE PO SCH (08:56)
--- NOTE | 2021-11-06 09:17 | EKG ---
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
[2021-11-06] MEDS: DOCUSATE SODIUM 100 MG CAPSULE PO SCH ×2 (09:52→20:37)
[2021-11-06] MEDS: 0.9 % SODIUM CHLORIDE 250 ML IV SCH ×2 (09:52→22:50)
[2021-11-06] MEDS: ACETAMINOPHEN 325 MG TABLET PO PRN ×2 (10:52→21:22)
[2021-11-06] MEDS: CEFEPIME 2 GM VIAL IV SCH ×2 (11:05→20:44)
--- NOTE | 2021-11-06 14:08 | Cat Scan Report ---
CLINICAL INFORMATION: Pyelonephritis COMPARISON: None. TECHNIQUE: IV and oral contrast were withheld per standard protocol. .625mm helical slices were obtained from the diaphragm through the subtrochanteric regions. Following reconstruction, 2.5 mm sagittal, coronal, and axial reformations were processed. Exam was reviewed in bone, soft tissue, and lung windows/algorithm. The exam was performed using radiation dose optimization techniques including, but not limited to, automated exposure control, adjustment of the mA and/or kV according to patient size and use of iterative reconstruction technique. FINDINGS: Mild mild interstitial edema in the secondary lobules in the lung bases with small bilateral pleural effusions supportive of CHF (suspected on earlier chest x-ray leg). The heart is mildly enlarged. Abdominal images show the noncontrasted liver is normal in size and attenuation. The gallbladder shows mild diffuse wall thickening with pericholecystic fluid suggesting acalculus cholecystitis. There are no stones identified. Intrahepatic and common bile ducts are normal caliber. Both kidneys are normal in size: the right is 10 cm in length and the left is 9.5 cm in length. There is mild inhomogeneity in the attenuation of the kidneys with perinephric edema which could indicate infection or other inflammatory process. Both adrenal glands, spleen, pancreas and aorta are normal in size, configuration and attenuation without focal lesion. Pelvic images show hysterectomy and oophorectomy changes. The urinary bladder is normal. Small amount of ascites is seen within the deep true pelvis and paracolic gutters. The noncontrasted stomach, small and large bowel are grossly normal. Bone windows show degenerative changes in lumbar spine-no focal osseous lesion IMPRESSION: 1. Mild diffuse gallbladder wall thickening with pericholecystic fluid suggesting the possibility of acalculus cholecystitis. Consider abdominal ultrasound. 2. Slight heterogeneity in the attenuation of both kidneys with perinephric edema. This is likely within normal limits but could indicate infectious or inflammatory nephritis. This could also could be evaluated concomitantly on abdominal ultrasound. 3. Interstitial edema in the lung bases and small bilateral pleural effusions supportive of CHF suspected on plain film earlier today. 4. Mild ascites Interpreted and Authenticated by: Brent Cantu 11/06/21
[2021-11-06] MEDS: IBUPROFEN 600 MG TABLET PO PRN (14:22)
[2021-11-06] MEDS: ONDANSETRON 4 MG/2 ML VIAL IV PRN (20:44)
[2021-11-06] MEDS: SIMVASTATIN 10 MG TABLET PO SCH (21:24)
[2021-11-07] MEDS: 0.9 % SODIUM CHLORIDE 10 ML SYRINGE IV SCH ×3 (05:23→20:04)
[2021-11-07] MEDS: ACETAMINOPHEN 325 MG TABLET PO PRN (05:28)
[2021-11-07] MEDS: ONDANSETRON 4 MG/2 ML VIAL IV PRN ×3 (05:28→20:27)
[2021-11-07] MEDS ORDERED: cefTRIAXone 2 GM in DEXTROSE 5% IN WATER 50 ML IV SCH (06:45)
[2021-11-07] MEDS ORDERED: metroNIDAZOLE 500 MG/100 ML BAG IV SCH (06:45)
[2021-11-07 07:20] LABS: Basophils # (Auto) 0.05 K/mcL (0.00-0.30); Basophils % (Auto) 0.5 % (0.0-2.0); Eosinophils # (Auto) 0.07 K/mcL (0.00-0.70); Eosinophils % (Auto) 0.7 % (0.0-7.0); Hematocrit 31.8 % (34.1-44.9); Hemoglobin 10.6 g/dL (11.2-15.7); Lymphocytes # (Auto) 1.33 K/mcL (1.50-4.80); Lymphocytes % (Auto) 12.8 % (15.5-49.0); Mean Cell Volume 93.3 fL (80.0-100.0); Mean Corpuscular HGB Conc 33.3 g/dL (31.0-36.0); Mean Platelet Volume 10.5 fL (7.4-10.4); Monocytes # (Auto) 1.33 K/mcL (0.10-0.90); Monocytes % (Auto) 12.8 % (1.0-12.0); Neutrophils % (Auto) 73.2 % (38.0-78.0); Platelet Count 213 K/mcL (140-440); RBC 3.41 M/mcL (3.59-5.38); Red Cell Distribution Width 13.5 % (11.5-14.5); WBC 10.4 K/mcL (4.5-11.0)
[2021-11-07] MEDS: PIPERACILLIN SODIUM/TAZOBACTAM 3.375 GM in DEXTROSE 5% IN WATER 50 ML IV SCH ×2 (07:29→12:42)
[2021-11-07 08:48] LABS: ALT/SGPT 52 U/L (<40); AST/SGOT 43 U/L (<32); Albumin 2.7 gm/dL (3.2-5.2); Alkaline Phosphatase 103 U/L (39-117); Bilirubin,Total 0.4 mg/dL (0.1-1.0); Blood Urea Nitrogen 4 mg/dL (8-23); Calcium 8.3 mg/dL (8.6-10.4); Carbon Dioxide 24 mmol/L (22-30); Chloride 97 mmol/L (96-108); Globulin 2.7 gm/dL (2.2-3.7); Glomerular Filtration Rate 96; Glucose 85 mg/dL (70-105)
[2021-11-07] MEDS: DOCUSATE SODIUM 100 MG CAPSULE PO SCH ×2 (09:12→20:04)
[2021-11-07] MEDS: 0.9 % SODIUM CHLORIDE 250 ML IV SCH ×2 (09:12→20:53)
[2021-11-07] MEDS: FISH OIL 1,000 MG CAPSULE PO SCH (09:13)
[2021-11-07] MEDS: CALCIUM W/VIT D3 500 MG TABLET PO SCH ×2 (09:13→20:04)
[2021-11-07] MEDS: GLUCOSAMINE/CHONDROITIN SULF A 1 CAP CAPSULE PO SCH ×2 (09:18→20:03)
--- NOTE | 2021-11-07 10:06 | Internal Med Progress Note ---
SUBJECTIVE Subjective Patient information: Note initiated : 11/07/21 at 10:03 am Service Date, if different from initiated Date: Patient: Florecita Branch 71 y/o F admitted on 11/05/21 for Syncope . Chief Complaint: Sepsis. Feeling well today. No abdominal pain, N/V. Interval history: Abdominal US pending Dr. Rausch is consulting on the patient regarding findings of acalculous cholecystitis on CT yesterday, awaiting recommendations Blood cultures---> NGTD UA-->negative culture Zoysn continues Pertinent ROS: + nausea, which is baseline, no vomiting Thirsty Constitutional Vitals: Vital Signs Temp Pulse Resp BP Pulse Ox 98.6 F 70 18 127/61 95 11/07/21 09:01 11/07/21 09:01 11/07/21 09:01 11/07/21 09:01 11/07/21 09:01 Period Temp Pulse Resp BP Sys/Hamm Pulse Ox Last 24 Hr 96.4 F-99.6 F 70-83 16-31 125-140/48-65 93-100 Intake and Output 11/06/21 11/07/21 11/07/21 21:59 05:59 13:59 Intake Total 880 0 50 Output Total 1150 700 Balance -270 -700 50 Weight 69.082 kg Intake & Output: Intake & Output 11/06/21 11/07/21 11/07/21 21:59 05:59 13:59 Intake Total 880 0 50 Output Total 1150 700 Balance -270 -700 50 Weight 69.082 kg Intake: IV 50 Zosyn 3.375 gm In Dextrose 5% 50 in Water 50 ml @ 100 mls/hr IV Q6H [facility] Rx#:[id number] Oral 880 0 Output: Void Amount 1150 700 Other: Meal Dinner Percent of Meal Consumed 100% Feeding Ability Independent Urine Appearance Clear Clear Sediment Urine Color Bright Yellow Bright Yellow Urine Odor Normal # Voids 1 1 Exam: No apparent distress, alert and oriented x3 Pleasant and conversant, Wants to go home Head Additional comments: Normocephalic Eye Eye exam: Present conjunctival injection, EOMI and normal appearance Pupils: Present PERRL Respiratory Respiratory exam: Present normal respiratory exam, CTAB and wheezes Cardiovascular Cardiovascular exam: Present normal rate and rhythm; Absent clicks, diastolic murmur, rubs or systolic murmur GI/Abdominal GI/Abdominal exam: Present soft and hypoactive bowel sounds; Absent distended, guarding, organomegaly, rebound or tenderness Additional comments: No RUQ tenderness, negative Resendez's Extremities Exam Extremities exam: Present full ROM, normal capillary refill, pedal edema and neurovascular intact; Absent tenderness Neurological Exam Neurological exam: Present alert, CN II-XII intact, motor sensory deficit and oriented X3 Psychiatric Psychiatric exam: Present normal affect and normal mood Skin Skin exam: Present normal color (No jaundice) and warm OBJ DATA Labs CBC & Chem 7: 11/07/21 05:45 11/07/21 05:45 Labs: Abnormal Lab Results 11/07/21 11/07/21 11/06/21 05:45 05:45 05:08 WBC RBC 3.41 L Hgb 10.6 L Hct 31.8 L MPV 10.5 H Neut % (Auto) Lymph % (Auto) 12.8 L [place] % (Auto) 12.8 H Lymph # (Auto) 1.33 L [place] # (Auto) 1.33 H Absolute Neutrophils Sodium 131 L Potassium 3.0 L 3.2 L Carbon Dioxide 19 L BUN 4 L 6 L Creatinine 0.5 L 0.5 L Glucose Calcium 8.3 L 7.5 L Phosphorus Magnesium AST 43 H 68 H ALT 52 H 58 H Lactate Dehydrogenase Total Protein 5.4 L 4.8 L Albumin 2.7 L 2.5 L Urine Appearance Urine Protein Urine Occult Blood Ur Leukocyte Esterase Urine RBC Urine WBC 11/06/21 11/05/21 11/05/21 05:08 10:35 05:28 WBC 12.4 H RBC 3.06 L Hgb 9.7 L Hct 29.3 L MPV 10.6 H Neut % (Auto) Lymph % (Auto) 11.4 L [place] % (Auto) 13.7 H Lymph # (Auto) 1.41 L [place] # (Auto) 1.70 H Absolute Neutrophils 9.14 H Sodium 130 L 130 L Potassium 2.8 L* 3.1 L Carbon Dioxide 19 L BUN Creatinine Glucose 134 H 121 H Calcium 7.3 L 7.6 L Phosphorus 1.5 L Magnesium 1.4 L AST ALT Lactate Dehydrogenase 123 L Total Protein 5.7 L 5.2 L Albumin 3.0 L 3.0 L Urine Appearance Urine Protein Urine Occult Blood Ur Leukocyte Esterase Urine RBC Urine WBC 11/05/21 11/05/21 05:28 04:45 WBC 18.6 H RBC 3.22 L Hgb 10.2 L Hct 29.4 L MPV Neut % (Auto) 80.7 H Lymph % (Auto) 4.7 L [place] % (Auto) 13.9 H Lymph # (Auto) 0.88 L [place] # (Auto) 2.58 H Absolute Neutrophils 15.00 H Sodium Potassium Carbon Dioxide BUN Creatinine Glucose Calcium Phosphorus Magnesium AST ALT Lactate Dehydrogenase Total Protein Albumin Urine Appearance Slightly cloudy A Urine Protein Trace A Urine Occult Blood Moderate A Ur Leukocyte Esterase Moderate A Urine RBC 10 H Urine WBC > 182 H Meds: Medications Acetaminophen (Acetaminophen 325 Mg Tablet) 650 mg PO Q4-6HP PRN; Protocol PRN Reason: Per Pain Protocol/Fever > 101 Last Admin: 11/07/21 05:28 Dose: 650 mg Documented by: Albuterol/Ipratropium (Ipratropium/Albuterol 3 Ml Ampul.Neb) 3 ml NEB Q4HRT PRN PRN Reason: Wheezing Calcium/Vitamin D (Calcium W/Vit D3 500 Mg Tablet) 500 mg PO BID [facility] Last Admin: 11/07/21 09:13 Dose: Not Given Documented by: Colestipol HCl (Colestipoll 1 Gm Tablet) 1 gm PO Q4HP PRN PRN Reason: Diarrhea Docusate Sodium (Docusate Sodium 100 Mg Capsule) 100 mg PO BID [facility] Last Admin: 11/07/21 09:12 Dose: Not Given Documented by: Duloxetine HCl (Duloxetine 20 Mg Capsule) 40 mg PO DAILY [facility] Last Admin: 11/06/21 08:56 Dose: 40 mg Documented by: Enoxaparin Sodium (Enoxaparin 40 Mg/0.4 Ml Syringe) 40 mg SQ DAILY [facility] Last Admin: 11/06/21 08:55 Dose: 40 mg Documented by: Estradiol (Estradiol 1 Mg Tablet) 1 mg PO QDAY [facility] Last Admin: 11/06/21 08:55 Dose: 1 mg Documented by: Fish Oil (Fish Oil 1,000 Mg Capsule) 1,000 mg PO DAILY [facility] Last Admin: 11/07/21 09:13 Dose: Not Given Documented by: Glucosamine/Chondroitin (Glucosamine/Chondroitin Sulf A 1 Cap Capsule) 1 cap PO BID [facility] Last Admin: 11/07/21 09:18 Dose: Not Given Documented by: Sodium Chloride (Sodium Chloride 0.9%) 250 mls @ 20 mls/hr IV .[id number] [facility] Last Admin: 11/07/21 09:12 Dose: Not Given Documented by: Piperacillin Sod/Tazobactam (Sod 3.375 gm/ Dextrose) 50 mls @ 100 mls/hr IV Q6H [facility]; Protocol Last Infusion: 11/07/21 08:05 Dose: Infused Documented by: Ibuprofen (Ibuprofen 600 Mg Tablet) 600 mg PO Q8H PRN; Protocol PRN Reason: pain Last Admin: 11/06/21 14:22 Dose: 600 mg Documented by: Morphine Sulfate (Morphine 4 Mg/Ml Vial) 4 mg IV Q2HP PRN; Protocol PRN Reason: Per Pain Protocol Ondansetron HCl (Ondansetron 4 Mg/2 Ml Vial) 4 mg IV Q4-6HP PRN; Protocol PRN Reason: Nausea And Vomiting Last Admin: 11/07/21 05:28 Dose: 4 mg Documented by: Ginkgo Biloba 40 Mg (Capsule) 1 dose PO BID [facility] Last Admin: 11/07/21 09:12 Dose: Not Given Documented by: Potassium Chloride (Potassium Chloride 10 Meq Tablet) 10 meq PO QDAY [facility] Last Admin: 11/06/21 08:55 Dose: 10 meq Documented by: Senna (Sennosides 8.8 Mg/5 Ml Ml) 8.8 mg PT DAILYP PRN PRN Reason: Constipation Simvastatin (Simvastatin 10 Mg Tablet) 5 mg PO HS [facility] Last Admin: 11/06/21 21:24 Dose: 5 mg Documented by: Sodium Chloride (0.9 % Sodium Chloride 10 Ml Syringe) 10 ml IV Q8 [facility] Last Admin: 11/07/21 05:23 Dose: 10 ml Documented by: A/P Narrative A/P Narrative: Sepsis Volume overload -GI consult pending, awaiting US--> Dr. Rausch is reviewed the ultrasound findings and does not feel that this is a calculus cholecystitis as the patient has multiple areas of intra-abdominal edema/ascites. He believes this is likely a finding of edema due to third spacing given her fluid resuscitation. No surgery. -Sepsis thought to be probably from urine source/GNR. She did receive IV antibiotics and went home on oral antibiotics from the ER on 11/04 which may have led to negative blood cultures and urine during her sepsis work-up. She has responded well to fluid resuscitation and IV antibiotics. -Volume overload in the setting of aggressive fluid resuscitation for sepsis. Will diurese today. Maybe home tomorrow. The patient was discussed with Dr. eCsar. Please see his note for further details and plan of care. Time Spent With Patient Time: Total time spent is greater than 50% in coordination of care (as documented) at patient's floor/unit and/or counseling patient: 20 minutes QUALITY VTE Deep Vein Thrombosis/Pulmonary Embolism Present on Admission: No
[2021-11-07] MEDS: POTASSIUM CHLORIDE 10 MEQ TABLET PO SCH ×3 (10:10→17:28)
[2021-11-07] MEDS: ESTRADIOL 1 MG TABLET PO SCH (10:10)
[2021-11-07] MEDS: DULoxetine 20 MG CAPSULE PO SCH (10:10)
--- NOTE | 2021-11-07 10:12 | Internal Med Progress Note ---
SUBJECTIVE Subjective Patient information: Note initiated : 11/07/21 at 10:11 am Service Date, if different from initiated Date: Patient: Florecita Branch 71 y/o F admitted on 11/05/21 for Syncope Chief Complaint: Constitutional Vitals: Vital Signs Temp Pulse Resp BP Pulse Ox 98.6 F 70 18 127/61 95 11/07/21 09:01 11/07/21 09:01 11/07/21 09:01 11/07/21 09:01 11/07/21 09:01 Period Temp Pulse Resp BP Sys/Hamm Pulse Ox Last 24 Hr 96.4 F-99.6 F 70-83 16-31 125-140/48-65 93-100 Intake and Output 11/06/21 11/07/21 11/07/21 21:59 05:59 13:59 Intake Total 880 0 50 Output Total 1150 700 Balance -270 -700 50 Weight 69.082 kg Intake & Output: Intake & Output 11/06/21 11/07/21 11/07/21 21:59 05:59 13:59 Intake Total 880 0 50 Output Total 1150 700 Balance -270 -700 50 Weight 69.082 kg Intake: IV 50 Zosyn 3.375 gm In Dextrose 5% 50 in Water 50 ml @ 100 mls/hr IV Q6H [facility] Rx#:[id number] Oral 880 0 Output: Void Amount 1150 700 Other: Meal Dinner Percent of Meal Consumed 100% Feeding Ability Independent Urine Appearance Clear Clear Sediment Urine Color Bright Yellow Bright Yellow Urine Odor Normal # Voids 1 1 OBJ DATA Labs CBC & Chem 7: 11/07/21 05:45 11/07/21 05:45 Labs: Abnormal Lab Results 11/07/21 11/07/21 11/06/21 05:45 05:45 05:08 WBC RBC 3.41 L Hgb 10.6 L Hct 31.8 L MPV 10.5 H Neut % (Auto) Lymph % (Auto) 12.8 L [place] % (Auto) 12.8 H Lymph # (Auto) 1.33 L [place] # (Auto) 1.33 H Absolute Neutrophils Sodium 131 L Potassium 3.0 L 3.2 L Carbon Dioxide 19 L BUN 4 L 6 L Creatinine 0.5 L 0.5 L Glucose Calcium 8.3 L 7.5 L Phosphorus Magnesium AST 43 H 68 H ALT 52 H 58 H Lactate Dehydrogenase Total Protein 5.4 L 4.8 L Albumin 2.7 L 2.5 L Urine Appearance Urine Protein Urine Occult Blood Ur Leukocyte Esterase Urine RBC Urine WBC 11/06/21 11/05/21 11/05/21 05:08 10:35 05:28 WBC 12.4 H RBC 3.06 L Hgb 9.7 L Hct 29.3 L MPV 10.6 H Neut % (Auto) Lymph % (Auto) 11.4 L [place] % (Auto) 13.7 H Lymph # (Auto) 1.41 L [place] # (Auto) 1.70 H Absolute Neutrophils 9.14 H Sodium 130 L 130 L Potassium 2.8 L* 3.1 L Carbon Dioxide 19 L BUN Creatinine Glucose 134 H 121 H Calcium 7.3 L 7.6 L Phosphorus 1.5 L Magnesium 1.4 L AST ALT Lactate Dehydrogenase 123 L Total Protein 5.7 L 5.2 L Albumin 3.0 L 3.0 L Urine Appearance Urine Protein Urine Occult Blood Ur Leukocyte Esterase Urine RBC Urine WBC 11/05/21 11/05/21 05:28 04:45 WBC 18.6 H RBC 3.22 L Hgb 10.2 L Hct 29.4 L MPV Neut % (Auto) 80.7 H Lymph % (Auto) 4.7 L [place] % (Auto) 13.9 H Lymph # (Auto) 0.88 L [place] # (Auto) 2.58 H Absolute Neutrophils 15.00 H Sodium Potassium Carbon Dioxide BUN Creatinine Glucose Calcium Phosphorus Magnesium AST ALT Lactate Dehydrogenase Total Protein Albumin Urine Appearance Slightly cloudy A Urine Protein Trace A Urine Occult Blood Moderate A Ur Leukocyte Esterase Moderate A Urine RBC 10 H Urine WBC > 182 H Meds: Medications Acetaminophen (Acetaminophen 325 Mg Tablet) 650 mg PO Q4-6HP PRN; Protocol PRN Reason: Per Pain Protocol/Fever > 101 Last Admin: 11/07/21 05:28 Dose: 650 mg Documented by: Albuterol/Ipratropium (Ipratropium/Albuterol 3 Ml Ampul.Neb) 3 ml NEB Q4HRT PRN PRN Reason: Wheezing Calcium/Vitamin D (Calcium W/Vit D3 500 Mg Tablet) 500 mg PO BID [facility] Last Admin: 11/07/21 09:13 Dose: Not Given Documented by: Colestipol HCl (Colestipoll 1 Gm Tablet) 1 gm PO Q4HP PRN PRN Reason: Diarrhea Docusate Sodium (Docusate Sodium 100 Mg Capsule) 100 mg PO BID [facility] Last Admin: 11/07/21 09:12 Dose: Not Given Documented by: Duloxetine HCl (Duloxetine 20 Mg Capsule) 40 mg PO DAILY [facility] Last Admin: 11/07/21 10:10 Dose: 40 mg Documented by: Enoxaparin Sodium (Enoxaparin 40 Mg/0.4 Ml Syringe) 40 mg SQ DAILY [facility] Last Admin: 11/06/21 08:55 Dose: 40 mg Documented by: Estradiol (Estradiol 1 Mg Tablet) 1 mg PO QDAY [facility] Last Admin: 11/07/21 10:10 Dose: 1 mg Documented by: Fish Oil (Fish Oil 1,000 Mg Capsule) 1,000 mg PO DAILY [facility] Last Admin: 11/07/21 09:13 Dose: Not Given Documented by: Glucosamine/Chondroitin (Glucosamine/Chondroitin Sulf A 1 Cap Capsule) 1 cap PO BID [facility] Last Admin: 11/07/21 09:18 Dose: Not Given Documented by: Sodium Chloride (Sodium Chloride 0.9%) 250 mls @ 20 mls/hr IV .[id number] [facility] Last Admin: 11/07/21 09:12 Dose: Not Given Documented by: Piperacillin Sod/Tazobactam (Sod 3.375 gm/ Dextrose) 50 mls @ 100 mls/hr IV Q6H [facility]; Protocol Last Infusion: 11/07/21 08:05 Dose: Infused Documented by: Ibuprofen (Ibuprofen 600 Mg Tablet) 600 mg PO Q8H PRN; Protocol PRN Reason: pain Last Admin: 11/06/21 14:22 Dose: 600 mg Documented by: Morphine Sulfate (Morphine 4 Mg/Ml Vial) 4 mg IV Q2HP PRN; Protocol PRN Reason: Per Pain Protocol Ondansetron HCl (Ondansetron 4 Mg/2 Ml Vial) 4 mg IV Q4-6HP PRN; Protocol PRN Reason: Nausea And Vomiting Last Admin: 11/07/21 05:28 Dose: 4 mg Documented by: Ginkgo Biloba 40 Mg (Capsule) 1 dose PO BID [facility] Last Admin: 11/07/21 09:12 Dose: Not Given Documented by: Potassium Chloride (Potassium Chloride 10 Meq Tablet) 10 meq PO QDAY [facility] Last Admin: 11/07/21 10:10 Dose: 10 meq Documented by: Senna (Sennosides 8.8 Mg/5 Ml Ml) 8.8 mg PT DAILYP PRN PRN Reason: Constipation Simvastatin (Simvastatin 10 Mg Tablet) 5 mg PO HS [facility] Last Admin: 11/06/21 21:24 Dose: 5 mg Documented by: Sodium Chloride (0.9 % Sodium Chloride 10 Ml Syringe) 10 ml IV Q8 [facility] Last Admin: 11/07/21 05:23 Dose: 10 ml Documented by: A/P Time Spent With Patient Time: Total time spent is greater than 50% in coordination of care (as documented) at patient's floor/unit and/or counseling patient: QUALITY VTE Deep Vein Thrombosis/Pulmonary Embolism Present on Admission: No
--- NOTE | 2021-11-07 10:19 | Ultrasound Report ---
CLINICAL INFORMATION: Abdominal pain. Possible cholecystitis on recent CT also bilateral renal edema COMPARISON: None. FINDINGS: The gallbladder wall is moderately thickened 5 mm with a small amount of pericholecystic fluid. No stones identified and there is no focal tenderness. The common bile duct is normal: 4 mm. The liver, pancreas are normal in size and echotexture. Both kidneys are normal in size, position, configuration and echotexture: the right is 10 x 4.6 cm and the left is 10 x 5 cm. No evidence of nephritis on the basis of ultrasound. 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 This is seen in retrospect on CT. No free fluid. IMPRESSION: 1. Acalculus cholecystitis. Bile ducts are normal 2. No evidence of nephritis. Both kidneys are normal in size and echotexture. 3. 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 This is seen in retrospect on the recent CT Interpreted and Authenticated by: Brent Cantu 11/07/21
[2021-11-07] MEDS ORDERED: POTASSIUM CHLORIDE 40 MEQ in DEXTROSE 5% IN WATER 500 ML IV ONE (11:10)
[2021-11-07] MEDS ORDERED: POTASSIUM CHLORIDE 20 MEQ TABLET PO ONE (13:00)
[2021-11-07] MEDS ORDERED: FUROSEMIDE 40 MG/4 ML VIAL IV ONE (13:01)
--- NOTE | 2021-11-07 13:08 | Internal Med Progress Note ---
SUBJECTIVE Subjective Patient information: Note initiated : 11/07/21 at 1:03 pm Service Date, if different from initiated Date: [] Patient: Florecita Branch a 71 y/o F admitted on 11/05/21 for Syncope . Chief Complaint: [] Interval history: Ms. Branch is a 71 year old F history of generalized osteoarthritis, essential HTN, mixed dyslipidemia, uterine prolapse, presenting with 2-day history of shivering and upper back pain. There is no prior similar history. No recent history of urinary tract infections. She presented to our ED yesterday for jackie vering and upper back pain and was being diagnosed with urinary tract infections. She received a dose of Rocephin and was sent home. Earlier this morning she could not stop shivering together with subjective fever. She is also committing of nausea. She is coming of upper back pain. She called EMS which brought her back to our ED for reevaluations. Her blood pressure was found to be low so she was started on Levophed as pressor. 30 cc/kg IV fluid boluses were started as part of the resuscitation's measures and admission request was called for pyelonephritis with septic shock. Labs significant for leukocytosis with WBC 18.6. Serum sodium 130 and serum potassium 3.1. Blood glucose 121. Lactic acid pending. Urine analysis suggest the presence of urinary tract infections. 11/06: Sepsis physiology resolving, urine and blood cultures pending. CT KUB ordered. 11/07: CT KUB did not show any ureteral stones, there was gallbladder wall thickening and pericholecystic fluid noted and confirmed with a limited abdominal ultrasound. Also noted were small bilateral pleural effusions and mild ascites. General surgery and did not feel the patient has acalculous cholecystitis. Urine and blood cultures still showing no growth to date, possibly because of antibiotics received prior to presenting to the ED. Antibiotic therapy deescalated from Zosyn to oral Ciprofloxacin. One dose of Lasix 40 mg IV today for volume overload from IV fluids received for sepsis. Likely discharge to home in a day or two on oral antibiotic for presumed pyelonephritis. Constitutional Vitals: Vital Signs Temp Pulse Resp BP Pulse Ox 98.6 F 70 18 127/61 95 11/07/21 09:01 11/07/21 09:01 11/07/21 09:01 11/07/21 09:01 11/07/21 09:01 Period Temp Pulse Resp BP Sys/Hamm Pulse Ox Last 24 Hr 96.4 F-98.6 F 70-80 16-20 126-140/48-64 93-96 Intake and Output 11/06/21 11/07/21 11/07/21 21:59 05:59 13:59 Intake Total 1880 0 50 Output Total 1150 700 760 Balance 730 -700 -710 Weight 69.082 kg Intake & Output: Intake & Output 11/06/21 11/07/21 11/07/21 21:59 05:59 13:59 Intake Total 1880 0 50 Output Total 1150 700 760 Balance 730 -700 -710 Weight 69.082 kg Intake: IV 1000 50 Sodium Chloride 0.9% 1,000 ml @ 1000 150 mls/hr IV .[id number] [facility] Rx#: [id number] Zosyn 3.375 gm In Dextrose 5% 50 in Water 50 ml @ 100 mls/hr IV Q6H [facility] Rx#:[id number] Oral 880 0 Output: Void Amount 1150 700 760 Other: Meal Dinner Percent of Meal Consumed 100% Feeding Ability Independent Urine Appearance Clear Clear Sediment Urine Color Bright Yellow Bright Yellow Bright Yellow Urine Odor Normal Normal Stool Size Moderate Stool Color Brown Stool Consistency Loose # Voids 1 1 OBJ DATA Labs CBC & Chem 7: 11/07/21 05:45 11/07/21 05:45 Labs: Abnormal Lab Results 11/07/21 11/07/21 11/06/21 05:45 05:45 05:08 WBC RBC 3.41 L Hgb 10.6 L Hct 31.8 L MPV 10.5 H Neut % (Auto) Lymph % (Auto) 12.8 L [place] % (Auto) 12.8 H Lymph # (Auto) 1.33 L [place] # (Auto) 1.33 H Absolute Neutrophils Sodium 131 L Potassium 3.0 L 3.2 L Carbon Dioxide 19 L BUN 4 L 6 L Creatinine 0.5 L 0.5 L Glucose Calcium 8.3 L 7.5 L Phosphorus Magnesium AST 43 H 68 H ALT 52 H 58 H Lactate Dehydrogenase Total Protein 5.4 L 4.8 L Albumin 2.7 L 2.5 L Urine Appearance Urine Protein Urine Occult Blood Ur Leukocyte Esterase Urine RBC Urine WBC 11/06/21 11/05/21 11/05/21 05:08 10:35 05:28 WBC 12.4 H RBC 3.06 L Hgb 9.7 L Hct 29.3 L MPV 10.6 H Neut % (Auto) Lymph % (Auto) 11.4 L [place] % (Auto) 13.7 H Lymph # (Auto) 1.41 L [place] # (Auto) 1.70 H Absolute Neutrophils 9.14 H Sodium 130 L 130 L Potassium 2.8 L* 3.1 L Carbon Dioxide 19 L BUN Creatinine Glucose 134 H 121 H Calcium 7.3 L 7.6 L Phosphorus 1.5 L Magnesium 1.4 L AST ALT Lactate Dehydrogenase 123 L Total Protein 5.7 L 5.2 L Albumin 3.0 L 3.0 L Urine Appearance Urine Protein Urine Occult Blood Ur Leukocyte Esterase Urine RBC Urine WBC 11/05/21 11/05/21 05:28 04:45 WBC 18.6 H RBC 3.22 L Hgb 10.2 L Hct 29.4 L MPV Neut % (Auto) 80.7 H Lymph % (Auto) 4.7 L [place] % (Auto) 13.9 H Lymph # (Auto) 0.88 L [place] # (Auto) 2.58 H Absolute Neutrophils 15.00 H Sodium Potassium Carbon Dioxide BUN Creatinine Glucose Calcium Phosphorus Magnesium AST ALT Lactate Dehydrogenase Total Protein Albumin Urine Appearance Slightly cloudy A Urine Protein Trace A Urine Occult Blood Moderate A Ur Leukocyte Esterase Moderate A Urine RBC 10 H Urine WBC > 182 H Meds: Medications Acetaminophen (Acetaminophen 325 Mg Tablet) 650 mg PO Q4-6HP PRN; Protocol PRN Reason: Per Pain Protocol/Fever > 101 Last Admin: 11/07/21 05:28 Dose: 650 mg Documented by: Albuterol/Ipratropium (Ipratropium/Albuterol 3 Ml Ampul.Neb) 3 ml NEB Q4HRT PRN PRN Reason: Wheezing Calcium/Vitamin D (Calcium W/Vit D3 500 Mg Tablet) 500 mg PO BID [facility] Last Admin: 11/07/21 09:13 Dose: Not Given Documented by: Ciprofloxacin (Ciprofloxacin 500 Mg Tablet) 500 mg PO BID [facility]; Protocol Colestipol HCl (Colestipoll 1 Gm Tablet) 1 gm PO Q4HP PRN PRN Reason: Diarrhea Docusate Sodium (Docusate Sodium 100 Mg Capsule) 100 mg PO BID [facility] Last Admin: 11/07/21 09:12 Dose: Not Given Documented by: Duloxetine HCl (Duloxetine 20 Mg Capsule) 40 mg PO DAILY [facility] Last Admin: 11/07/21 10:10 Dose: 40 mg Documented by: Enoxaparin Sodium (Enoxaparin 40 Mg/0.4 Ml Syringe) 40 mg SQ DAILY [facility] Last Admin: 11/06/21 08:55 Dose: 40 mg Documented by: Estradiol (Estradiol 1 Mg Tablet) 1 mg PO QDAY [facility] Last Admin: 11/07/21 10:10 Dose: 1 mg Documented by: Fish Oil (Fish Oil 1,000 Mg Capsule) 1,000 mg PO DAILY [facility] Last Admin: 11/07/21 09:13 Dose: Not Given Documented by: Furosemide (Furosemide 40 Mg/4 Ml Vial) 40 mg IV ONCE ONE Stop: 11/07/21 13:02 Glucosamine/Chondroitin (Glucosamine/Chondroitin Sulf A 1 Cap Capsule) 1 cap PO BID [facility] Last Admin: 11/07/21 09:18 Dose: Not Given Documented by: Sodium Chloride (Sodium Chloride 0.9%) 250 mls @ 20 mls/hr IV .[id number] [facility] Last Admin: 11/07/21 09:12 Dose: Not Given Documented by: Potassium Chloride 40 meq/ (Dextrose) 520 mls @ 130 mls/hr IV ONCE ONE Stop: 11/07/21 15:09 Last Admin: 11/07/21 12:42 Dose: 130 mls/hr Documented by: Ibuprofen (Ibuprofen 600 Mg Tablet) 600 mg PO Q8H PRN; Protocol PRN Reason: pain Last Admin: 11/06/21 14:22 Dose: 600 mg Documented by: Morphine Sulfate (Morphine 4 Mg/Ml Vial) 4 mg IV Q2HP PRN; Protocol PRN Reason: Per Pain Protocol Ondansetron HCl (Ondansetron 4 Mg/2 Ml Vial) 4 mg IV Q4-6HP PRN; Protocol PRN Reason: Nausea And Vomiting Last Admin: 11/07/21 05:28 Dose: 4 mg Documented by: Ginkgo Biloba 40 Mg (Capsule) 1 dose PO BID [facility] Last Admin: 11/07/21 09:12 Dose: Not Given Documented by: Potassium Chloride (Potassium Ch[facility] 10 Meq Tablet) [facility] Potassium Chloride (Potassium Chloride 20 Meq Tablet) 40 meq PO ONCE ONE Stop: 11/07/21 13:01 Senna (Sennosides 8.8 Mg/5 Ml Ml) 8.8 mg PT DAILYP PRN PRN Reason: Constipation Simvastatin (Simvastatin 10 Mg Tablet) 5 mg PO HS [facility] Last Admin: 11/06/21 21:24 Dose: 5 mg Documented by: Sodium Chloride (0.9 % Sodium Chloride 10 Ml Syringe) 10 ml IV Q8 [facility] Last Admin: 11/07/21 12:46 Dose: 10 ml Documented by: A/P Narrative A/P Narrative: Assessment: 71-year-old female with a history of hypertension, dyslipidemia, uterine prolapse, osteoarthritis admitted for sepsis secondary to presumed pyelonephritis. Urine and blood cultures have not grown any organisms probably because the patient was on antibiotics before presenting to the ED the second time and admitted for sepsis. Imaging with CT and ultrasound showed gallbladder wall thickening and pericholecystic fluid, general surgery does not feel the patient has acute cholecystitis and these findings are instead secondary to volume overload from IV fluid received during sepsis treatment. #Presumed pyelonephritis #Resolved sepsis #Volume overload d/t IV fluid #Gallbladder wall thickening and pericholcystic fluid #Hypokalemia #Hyponatremia #Essential hypertension #Dyslipidemia #Osteoarthritis Plan -Transition to oral Ciprofloxacin 500 mg BID, discontinue Zosyn. -Lasix 40 mg IV once. -Potassium supplementation. -Follow blood and urine cultures. -Hold home oral antihypertensives for now. -Continue essential home medications. -DVT prophylaxis: Lovenox -CODE STATUS: Full -Disposition: Home when stable on oral ciprofloxacin for 5-7 days. Time Spent With Patient Time: Total time spent is greater than 50% in coordination of care (as documented) at patient's floor/unit and/or counseling patient: QUALITY VTE Deep Vein Thrombosis/Pulmonary Embolism Present on Admission: No
--- NOTE | 2021-11-07 13:18 | General Surgery Consult Note ---
HPI Data of Consult Patient: new to practice Consult date: 11/05/21 Requesting physician: Warren Cesar Primary Care Provider: Brent Calvo DO Consult Narrative Reason for consult: Gallbladder wall thickening with pericholecystic fluid History of present illness: 71-year-old female who was admitted with picture of sepsis with fever chills l eukocytosis and hypotension. Patient states that her symptoms started about 4 AM on 04 November. At that time she awakened feeling poorly and was noted to have fever with sweats and body aches. She has some nausea but no vomiting. She was seen in the emergency room and her abdominal exam was benign but she had positive urinary nitrates and urine leukocytes with 101.3 temperature. She was treated with antibiotics and discharged. The following day she developed from aggressive weakness and had multiple syncopal episodes at home. She also had fever with chills and back pain bilaterally. She was seen in the emergency room where she had 101.8 temperature. Her blood pressure initially was in the 80s and then dropped to 52/40. She needed Levophed to supplement her blood pressure and was admitted and started on Zosyn and vancomycin. Her white count increased to 18,600. COVID-19 and influenza A&B were negative. Repeat urine analysis showed moderate urinary leukocytes and esterase. She has been continued on treatment. She has not had any abdominal pain. Her back pain has resolved. Her abdomen remains soft nontender upper and lower quadrants. Blood cultures and urine cultures are negative so far in spite of the increased bacteria leukocytes and esterase on her 2 urine analysis. White blood count is decreased to 10.4. She states that she feels much better at this time. CT and ultrasound performed recently shows slightly thickened gallbladder wall with pericholecystic fluid but no sonographic evidence of cholecystitis. Patient definitively states that she has not had any epigastric or upper abdominal pain of any kind. She has not had abdominal tenderness. Review of her record reveals that she has had major fluid resuscitation and her chest x-ray shows suggestion of early pulmonary congestion with pleural effusions and early cardiomegaly. CT in addition to the changes in the gallbladder also shows fluid in both gutters in the pelvis suggestive of third space fluid sequestration probably related to volume overload. The edema of the gallbladder is felt to be related to volume edema and early right heart failure rather than due to inflammation or gallstone disease. cc:: CC: Kashif Nur MD [facility] PFS All Active Problems (Updated 11/07/21 @ 13:15 by Tasha Rausch MD) Cardiac volume overload (Acute) Anemia, normocytic normochromic (Acute) Hypokalemia (Acute) Hyponatremia (Acute) Septic shock (Acute) Pyelonephritis (Acute) Sepsis due to urinary tract infection (Acute) Sepsis due to urinary tract infection (Acute) 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) Acute neck pain (Acute) Medicare annual wellness visit, initial (Acute) Osteoarthritis of right hip (Acute) Weight loss (Acute) Motion sickness (Chronic) Tubular adenoma (Chronic) Myofascial pain (Chronic) Vaginal prolapse (Chronic) Stress (Chronic) Hip pain (Chronic) Pelvic relaxation (Chronic) Thoracic back pain (Acute) Back pain (Chronic) Intentional weight loss (Chronic) Seborrheic keratoses (Chronic) Enterocele (Chronic) Rectocele (Chronic) Neck pain (Chronic) Osteoarthritis (Chronic) Rectal irritation (Chronic) 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) Greater trochanteric bursitis of right hip (Chronic) Cervical spinal stenosis (Chronic) Greater trochanteric bursitis of both hips (Chronic) History of colonoscopy (Chronic) Positional vertigo (Chronic) Vasomotor instability (Chronic) Seborrheic dermatitis (Chronic) Rosacea (Chronic) Rectocele (Chronic) Proctitis (Chronic) Pelvic relaxation (Chronic) Paresthesia (Chronic) Hypertension, essential (Chronic) Hyperlipidemia (Chronic) Hormone replacement therapy (Chronic) Fibrocystic breast disease (Chronic) Fatigue (Chronic) Dermatitis (Chronic) Cystocele (Chronic) Chest pain (Chronic) Bursitis (Chronic) Medical History Back pain Much improved on Cymbalta She also takes ibuprofen 600 mg once daily Bursitis Greater trochanteric Cervical radiculopathy Cervical spinal stenosis Consider referral back to [facility] if exacerbations increase in frequency or worsen. Chest pain Intermittent atypical Cystocele Dermatitis Facial and Arm Diarrhea Resolved. She had her surgery to repair her pelvic prolapse, and this resolved her diarrhea. Drug-induced nausea and vomiting Enterocele Fatigue Fibrocystic breast disease History of Foraminal stenosis of cervical region Left C4-5 & C5-6 Greater trochanteric bursitis of both hips Corticosteroid injections to bilateral bursas today. Tolerated well. Greater trochanteric bursitis of right hip Received a dose of morphine in the ER last month, which helped at the time, and states that she is doing well now Steroid injections help when needed History of ovarian cancer Hormone replacement therapy She continues on HRT for hot flashes, understands the potential risks, and does not want to reduce the dose Hyperlipidemia Well-controlled on pravastatin 10 mg nightly. Tolerated well. Hypertension, essential Well-controlled on amlodipine 10 mg daily and triamterenehydrochlorothiazide 37.5-25 mg daily. Slightly overtreated. Decrease amlodipine to 5 mg daily and monitor blood pressure once every week or 2. Goal of around 120-130/80. Hypokalemia Potassium 3.0 ER last month Likely secondary to diuretics Start KCl 10 mEq daily We will check potassium today also Hyponatremia Hyponatremia Inflamed seborrheic keratosis Right shoulder. Treated with cryotherapy today. Tolerated well. Intentional weight loss 37 pounds Medicare annual wellness visit, initial Motion sickness Long history of nausea. Patient takes Zofran occasionally which helps. Muscle pain Muscle spasms Neck pain Much improved on Cymbalta She also takes ibuprofen 600 mg once daily Osteoarthritis Osteoarthritis cervical spine Left trapezius pain. Paresthesia Pelvic relaxation Personal history of ovarian cancer Remote History Positional vertigo Proctitis Ulcerative Rectal irritation Recurring Rectocele Rectocele Rosacea Seborrheic dermatitis Vasomotor instability Patient understands risks of taking estradiol is hormone replacement therapy, and wants to continue. Weight loss Approximately 40 pound weight loss, which is partly intentional. She states the last 10 pounds were unintentional. She states that his now plateaued. Weight does appear to be stable over the last several months. Patient will continue to monitor weight at home. Surgical History History of cataract surgery 2013 bilateral History of colonoscopy 05/27/2012 Micro: Hyperplastic Polyp. [address] Sandoval. 03/01/2019 TA. 3-year follow-up. History of foot surgery Unspecified right foot History of hysterectomy 1979 History of oophorectomy Unilateral History of sigmoidoscopy 07/2008 History of surgical removal of skin lesion 09/12/2009 2 Lesions removed from right chin - Result: Right Lower Chin Lesio n: Intradermal Nevus with congenital features, Margins negative for nevus cells. Right Upper Chin Lesion: Neurotized Intradermal Nevus, Nevus cells present at lateral resection margin. History of tonsillectomy Family History Father Chronic obstructive pulmonary disease Mother Cardiac disease Social History household members: spouse housing: house lives independently: Yes marital status: education level: college occupational status: retired occupation: teacher other: 2 Adult Children, 4 Grandchildren smoking status: Never smoker alcohol intake frequency: does not drink substance use type: does not use MEDS/ALLERGIES Home Medications and Allergies Home Medications Medication Instructions Recorded Confirmed Type antiarthritic combination no.2 900 900 mg PO BID 07/06/17 11/05/21 History mg tablet (glucosamine-chondroitin) calcium carbonate 500 mg-vitamin 1 tab PO BID 07/06/17 11/05/21 History D3 10 mcg (400 unit) tablet (Calcium 500 + D) ginkgo biloba 40 mg capsule 40 mg PO BID 07/06/17 11/05/21 History omega-3 fatty acids 1,000 mg 1,000 mg PO QDAY 07/06/17 11/05/21 History capsule (Fish Oil Concentrate) colestipol 1 gram tablet 1 g PO PRN PRN tab 10/23/19 11/05/21 History estradiol 1 mg tablet 1 mg PO QDAY #90 tab 10/21/20 11/05/21 Rx ibuprofen 600 mg tablet 600 mg PO Q8H PRN #20 tab 12/17/20 11/05/21 Rx triamterene 37.5 1 tab PO QDAY #90 tab 01/02/21 11/05/21 Rx mg-hydrochlorothiazide 25 mg tablet pravastatin 10 mg tablet 10 mg PO QHS #90 tab 03/17/21 11/05/21 Rx duloxetine 40 mg capsule,delayed 40 mg PO QDAY #90 cap 08/26/21 11/05/21 Rx release potassium chloride 10 mEq 10 meq PO QDAY #90 tab 10/20/21 11/05/21 Rx tablet,extended release ondansetron 4 mg disintegrating 4 mg PO Q8H PRN #6 tab 11/04/21 11/05/21 Rx tablet amlodipine 5 mg tablet 1 tab PO QHS 11/05/21 11/05/21 History Allergies Allergy/AdvReac Type Severity Reaction Status Date / Time dexamethasone [From Decadron] AdvReac Intermediate Flushing,pa Verified 11/05/21 11:15 in metoclopramide [From Reglan] AdvReac Intermediate Shakiness Verified 11/05/21 11 :15 hydrocodone AdvReac Mild vomiting Verified 11/05/21 11:15 oxycodone AdvReac Mild Vomiting Verified 11/05/21 11:15 tramadol AdvReac Mild Vomiting Verified 11/05/21 11:15 Physical Examination Vital Signs Vital signs: Temp Pulse Resp BP Pulse Ox 98.6 F 70 18 127/61 95 11/07/21 09:01 11/07/21 09:01 11/07/21 09:01 11/07/21 09:01 11/07/21 09:01 General physical appearance General physical exam: well developed, well nourished, no distress and no pain Eyes Eye exam: PERRL and normal ocular movement ENT ENT exam: normal nares, normal mucosa and no hearing loss Head Head exam IM: Present atraumatic, normal inspection and normocephalic Neck Neck exam: no masses, no bruits, trachea midline, no lymphadenopathy and no venous distension Cardiovascular Cardiovascular exam IM: Present normal rate and rhythm, RRR, +S1 and +S2; Absent JVD Respiratory Respiratory exam: normal expansion, normal respiratory effort and clear to auscultation Abdomen Abdomen: Present soft and bowel sounds (Normal bowel sounds); Absent non tender, guarding or rebound Integumentary Integumentary: Present no rash, no growths and no abnormal pigmentation Neurologic Neurologic: Present normal coordination and normal sensation Musculoskeletal Musculoskeletal: Present normal gait and normal posture Psychiatric Psychiatric: Present oriented to time, oriented to person, oriented to place, speech is normal and memory intact Results Labs Result diagrams: 11/07/21 05:45 11/07/21 05:45 Labs: Abnormal lab results 11/07/21 11/07/21 Range/Units 05:45 05:45 RBC 3.41 L (3.59-5.38) M/mcL Hgb 10.6 L (11.2-15.7) g/dL Hct 31.8 L (34.1-44.9) % MPV 10.5 H (7.4-10.4) fL Lymph % (Auto) 12.8 L (15.5-49.0) % [place] % (Auto) 12.8 H (1.0-12.0) % Lymph # (Auto) 1.33 L (1.50-4.80) K/mcL [place] # (Auto) 1.33 H (0.10-0.90) K/mcL Sodium 131 L (133-145) mmol/L Potassium 3.0 L (3.3-5.1) mmol/L BUN 4 L (8-23) mg/dL Creatinine 0.5 L (0.6-1.1) mg/dL Calcium 8.3 L (8.6-10.4) mg/dL AST 43 H (<32) U/L ALT 52 H (<40) U/L Total Protein 5.4 L (5.9-8.4) gm/dL Albumin 2.7 L (3.2-5.2) gm/dL Diabetes panel 11/07/21 Range/Units 05:45 Sodium 131 L (133-145) mmol/L Potassium 3.0 L (3.3-5.1) mmol/L Chloride 97 (96-108) mmol/L Carbon Dioxide 24 (22-30) mmol/L BUN 4 L (8-23) mg/dL Creatinine 0.5 L (0.6-1.1) mg/dL Glucose 85 (70-105) mg/dL Calcium 8.3 L (8.6-10.4) mg/dL AST 43 H (<32) U/L ALT 52 H (<40) U/L Alkaline Phosphatase 103 (39-117) U/L Total Protein 5.4 L (5.9-8.4) gm/dL Albumin 2.7 L (3.2-5.2) gm/dL Calcium panel 11/07/21 Range/Units 05:45 Calcium 8.3 L (8.6-10.4) mg/dL Albumin 2.7 L (3.2-5.2) gm/dL Pituitary panel 11/07/21 Range/Units 05:45 Sodium 131 L (133-145) mmol/L Potassium 3.0 L (3.3-5.1) mmol/L Chloride 97 (96-108) mmol/L Carbon Dioxide 24 (22-30) mmol/L BUN 4 L (8-23) mg/dL Creatinine 0.5 L (0.6-1.1) mg/dL Glucose 85 (70-105) mg/dL Calcium 8.3 L (8.6-10.4) mg/dL Adrenal panel 11/07/21 Range/Units 05:45 Sodium 131 L (133-145) mmol/L Potassium 3.0 L (3.3-5.1) mmol/L Chloride 97 (96-108) mmol/L Carbon Dioxide 24 (22-30) mmol/L BUN 4 L (8-23) mg/dL Creatinine 0.5 L (0.6-1.1) mg/dL Glucose 85 (70-105) mg/dL Calcium 8.3 L (8.6-10.4) mg/dL Total Bilirubin 0.4 (0.1-1.0) mg/dL AST 43 H (<32) U/L ALT 52 H (<40) U/L Alkaline Phosphatase 103 (39-117) U/L Total Protein 5.4 L (5.9-8.4) gm/dL Albumin 2.7 L (3.2-5.2) gm/dL All other labs normal. A/P Assessment and plan (1) Septic shock: Status: Acute (2) Sepsis due to urinary tract infection: Status: Acute (3) Cardiac volume overload: Status: Acute (4) Hypokalemia: Status: Acute (5) Hypertension, essential: Status: Chronic Comment: Well-controlled on amlodipine 10 mg daily and triamterenehydrochlorothiazide 37.5-25 mg daily. Slightly overtreated. Decrease amlodipine to 5 mg daily and monitor blood pressure once every week or 2. Goal of around 120-130/80. Narrative A/P Narrative: Though the patient has a radiologic diagnosis of acalculous cholecystitis her actual clinical picture is more compatible with volume overload with right heart failure and secondary cardiomegaly with bilateral pleural effusions p ericholecystic and perihepatic fluid and fluid in both carotids in the pelvis. No history, symptom complex, lab data suggest biliary tract disease. I have taken the liberty of ordering a proBNP and will get follow-up chest x-ray in the morning. If her proBNP is elevated she should be gently diuresed. I have taken the liberty of increasing her p.o. potassium since she has hypokalemia. Time Spent With Patient Time: Total time spent is greater than 50% in coordination of care (as documented) at patient's floor/unit and/or counseling patient:
--- NOTE | 2021-11-07 13:35 | XRay Report ---
CLINICAL INFORMATION: Follow-up CHF COMPARISON: 11/05/2021 TECHNIQUE: Portable FINDINGS: The heart and pulmonary vascularity have returned to normal in size. Mediastinum is unremarkable. Small left pleural effusion has developed. There is minimal left basilar atelectasis. IMPRESSION: Interval resolution CHF. New small left pleural effusion Interpreted and Authenticated by: Brent Cantu 11/07/21
[2021-11-07] MEDS: ENOXAPARIN 40 MG/0.4 ML SYRINGE SQ SCH (14:29)
[2021-11-07] MEDS: IBUPROFEN 600 MG TABLET PO PRN (14:35)
[2021-11-07] MEDS ORDERED: POTASSIUM CHLORIDE 20 MEQ TABLET PO SCH (17:30)
[2021-11-07] MEDS: SIMVASTATIN 10 MG TABLET PO SCH (20:04)
[2021-11-07] MEDS: CIPROFLOXACIN 500 MG TABLET PO SCH (20:04)
[2021-11-08] MEDS: ACETAMINOPHEN 325 MG TABLET PO PRN (03:36)
[2021-11-08] MEDS: ONDANSETRON 4 MG/2 ML VIAL IV PRN ×2 (03:52→12:13)
[2021-11-08] MEDS: 0.9 % SODIUM CHLORIDE 10 ML SYRINGE IV SCH ×3 (04:00→21:55)
[2021-11-08 08:16] LABS: Basophils # (Auto) 0.03 K/mcL (0.00-0.30); Basophils % (Auto) 0.3 % (0.0-2.0); Eosinophils % (Auto) 1.1 % (0.0-7.0); Hematocrit 32.2 % (34.1-44.9); Hemoglobin 11.2 g/dL (11.2-15.7); Lymphocytes # (Auto) 1.62 K/mcL (1.50-4.80); Lymphocytes % (Auto) 17.7 % (15.5-49.0); Mean Cell Volume 92.5 fL (80.0-100.0); Mean Corpuscular HGB Conc 34.8 g/dL (31.0-36.0); Mean Platelet Volume 10.4 fL (7.4-10.4); Monocytes # (Auto) 1.83 K/mcL (0.10-0.90); Neutrophils % (Auto) 60.9 % (38.0-78.0); Platelet Count 234 K/mcL (140-440); RBC 3.48 M/mcL (3.59-5.38); Red Cell Distribution Width 13.2 % (11.5-14.5); WBC 9.1 K/mcL (4.5-11.0)
[2021-11-08] MEDS: DOCUSATE SODIUM 100 MG CAPSULE PO SCH ×2 (08:30→21:53)
[2021-11-08] MEDS: FISH OIL 1,000 MG CAPSULE PO SCH (08:31)
[2021-11-08] MEDS: CALCIUM W/VIT D3 500 MG TABLET PO SCH ×2 (08:31→21:52)
[2021-11-08] MEDS: DULoxetine 20 MG CAPSULE PO SCH (08:35)
[2021-11-08] MEDS: CIPROFLOXACIN 500 MG TABLET PO SCH ×2 (08:35→21:52)
[2021-11-08] MEDS: GLUCOSAMINE/CHONDROITIN SULF A 1 CAP CAPSULE PO SCH ×2 (08:35→21:52)
[2021-11-08] MEDS: ESTRADIOL 1 MG TABLET PO SCH (08:36)
[2021-11-08] MEDS: POTASSIUM CHLORIDE 10 MEQ TABLET PO SCH (08:40)
[2021-11-08] MEDS: ENOXAPARIN 40 MG/0.4 ML SYRINGE SQ SCH (08:43)
[2021-11-08] MEDS: 0.9 % SODIUM CHLORIDE 250 ML IV SCH (10:47)
[2021-11-08 11:47] LABS: ALT/SGPT 39 U/L (<40); AST/SGOT 25 U/L (<32); Albumin 2.9 gm/dL (3.2-5.2); Alkaline Phosphatase 95 U/L (39-117); Bilirubin,Total 0.3 mg/dL (0.1-1.0); Blood Urea Nitrogen 6 mg/dL (8-23); Calcium 8.7 mg/dL (8.6-10.4); Carbon Dioxide 27 mmol/L (22-30); Chloride 94 mmol/L (96-108); Globulin 2.8 gm/dL (2.2-3.7); Glomerular Filtration Rate 90; Glucose 154 mg/dL (70-105)
[2021-11-08] MEDS ORDERED: POTASSIUM CHLORIDE 40 MEQ in DEXTROSE 5% IN WATER 500 ML IV ONE (11:50)
[2021-11-08] MEDS: IBUPROFEN 600 MG TABLET PO PRN (14:00)
--- NOTE | 2021-11-08 14:26 | Internal Med Progress Note ---
SUBJECTIVE Subjective Patient information: Note initiated : 11/08/21 at 2:25 pm Service Date, if different from initiated Date: [] Patient: Florecita Branch a 71 y/o F admitted on 11/05/21 for Syncope . Chief Complaint: [] Interval history: Ms. Branch is a 71 year old F history of generalized osteoarthritis, essential HTN, mixed dyslipidemia, uterine prolapse, presenting with 2-day history of shivering and upper back pain. There is no prior similar history. No recent history of urinary tract infections. She presented to our ED yesterday for jackie vering and upper back pain and was being diagnosed with urinary tract infections. She received a dose of Rocephin and was sent home. Earlier this morning she could not stop shivering together with subjective fever. She is also committing of nausea. She is coming of upper back pain. She called EMS which brought her back to our ED for reevaluations. Her blood pressure was found to be low so she was started on Levophed as pressor. 30 cc/kg IV fluid boluses were started as part of the resuscitation's measures and admission request was called for pyelonephritis with septic shock. Labs significant for leukocytosis with WBC 18.6. Serum sodium 130 and serum potassium 3.1. Blood glucose 121. Lactic acid pending. Urine analysis suggest the presence of urinary tract infections. 11/06: Sepsis physiology resolving, urine and blood cultures pending. CT KUB ordered. 11/07: CT KUB did not show any ureteral stones, there was gallbladder wall thickening and pericholecystic fluid noted and confirmed with a limited abdominal ultrasound. Also noted were small bilateral pleural effusions and mild ascites. General surgery and did not feel the patient has acalculous cholecystitis. Urine and blood cultures still showing no growth to date, possibly because of antibiotics received prior to presenting to the ED. Antibiotic therapy deescalated from Zosyn to oral Ciprofloxacin. One dose of Lasix 40 mg IV today for volume overload from IV fluids received for sepsis. Likely discharge to home in a day or two on oral antibiotic for presumed pyelonephritis. 11/08 patietn seen examined, wanting to go home Labs show K of 2.9, bnp still high, needs an echo discussed case with daughter, who wants referral to ID specialist for UTI, She also wanted a referral for uterine proloapse, I have asked her to reach her PCP or consider calling [facility] them selfes to make an appointment. Patient has some nausea, but willing to go to more solid foods,feels warm Pertinent ROS: Denies headache, dizziness Denies chest pain, palpitations Denies cough or shortness of breath Denies abdominal pain, nausea or vomiting. Constitutional Vitals: Vital Signs Temp Pulse Resp BP Pulse Ox 98.3 F 67 16 137/59 97 11/08/21 12:00 11/08/21 12:00 11/08/21 12:00 11/08/21 12:00 11/08/21 12:00 Period Temp Pulse Resp BP Sys/Hamm Pulse Ox Last 24 Hr 97.1 F-99.7 F 67-77 16-18 121-137/51-65 93-97 Intake and Output 11/08/21 11/08/21 11/08/21 05:59 13:59 21:59 Intake Total 400 1900 Output Total 1000 500 Balance -600 1400 Intake & Output: Intake & Output 11/08/21 11/08/21 11/08/21 05:59 13:59 21:59 Intake Total 400 1900 Output Total 1000 500 Balance -600 1400 Intake: Oral 400 1900 Output: Void Amount 1000 500 Other: Meal Breakfast Percent of Meal Consumed 50% Feeding Ability Independent Urine Appearance Clear Urine Color Bright Yellow Urine Odor Normal Stool Size Small Stool Color Brown Stool Consistency Loose # Voids 1 # Bowel Movements 1 Additional findings Additional findings: Physical Exam Constitutional; Afebrile, cooperative, alert, not in distress. Eyes- No icterus, , No periorbital swelling Ears- Ext ear normal, hearing normal to conversation. Neck- Midline trachea, supple Respiratory system: Air Entry equal on both sides, Bibasilar crackles present, no wheezing, CVS- Rate rhythm regular, S1,S2 heard, no gallop, no rub. Abdomen- Soft nontender abdomen, no organomegaly, no tenderness, no guarding or rigidity, RECEIVING DOCK CHECKER- AOOx3, moving all extremities, no gross focal deficit noted. OBJ DATA Labs CBC & Chem 7: 11/08/21 05:12 11/08/21 10:42 Labs: Abnormal Lab Results 11/08/21 11/08/21 11/08/21 10:42 05:12 05:12 WBC RBC 3.48 L Hgb Hct 32.2 L MPV Lymph % (Auto) [place] % (Auto) 20.0 H Lymph # (Auto) [place] # (Auto) 1.83 H Absolute Neutrophils Sodium Potassium 2.9 L* Chloride 94 L Carbon Dioxide BUN 6 L Creatinine Glucose 154 H Calcium AST ALT NT-Pro-B Natriuret Pep 1403.0 H Total Protein 5.7 L Albumin 2.9 L 11/07/21 11/07/21 11/07/21 13:49 05:45 05:45 WBC RBC 3.41 L Hgb 10.6 L Hct 31.8 L MPV 10.5 H Lymph % (Auto) 12.8 L [place] % (Auto) 12.8 H Lymph # (Auto) 1.33 L [place] # (Auto) 1.33 H Absolute Neutrophils Sodium 131 L Potassium 3.0 L Chloride Carbon Dioxide BUN 4 L Creatinine 0.5 L Glucose Calcium 8.3 L AST 43 H ALT 52 H NT-Pro-B Natriuret Pep 3022.0 H Total Protein 5.4 L Albumin 2.7 L 11/06/21 11/06/21 05:08 05:08 WBC 12.4 H RBC 3.06 L Hgb 9.7 L Hct 29.3 L MPV 10.6 H Lymph % (Auto) 11.4 L [place] % (Auto) 13.7 H Lymph # (Auto) 1.41 L [place] # (Auto) 1.70 H Absolute Neutrophils 9.14 H Sodium Potassium 3.2 L Chloride Carbon Dioxide 19 L BUN 6 L Creatinine 0.5 L Glucose Calcium 7.5 L AST 68 H ALT 58 H NT-Pro-B Natriuret Pep Total Protein 4.8 L Albumin 2.5 L Meds: Medications Acetaminophen (Acetaminophen 325 Mg Tablet) 650 mg PO Q4-6HP PRN; Protocol PRN Reason: Per Pain Protocol/Fever > 101 Last Admin: 11/08/21 03:36 Dose: 650 mg Documented by: Albuterol/Ipratropium (Ipratropium/Albuterol 3 Ml Ampul.Neb) 3 ml NEB Q4HRT PRN PRN Reason: Wheezing Calcium/Vitamin D (Calcium W/Vit D3 500 Mg Tablet) 500 mg PO BID COUNT INCLUDES THE [facility] Last Admin: 11/08/21 08:31 Dose: Not Given Documented by: Ciprofloxacin (Ciprofloxacin 500 Mg Tablet) 500 mg PO BID COUNT INCLUDES THE [facility]; Protocol Last Admin: 11/08/21 08:35 Dose: 500 mg Documented by: Colestipol HCl (Colestipoll 1 Gm Tablet) 1 gm PO Q4HP PRN PRN Reason: Diarrhea Docusate Sodium (Docusate Sodium 100 Mg Capsule) 100 mg PO BID COUNT INCLUDES THE [facility] Last Admin: 11/08/21 08:30 Dose: Not Given Documented by: Duloxetine HCl (Duloxetine 20 Mg Capsule) 40 mg PO DAILY COUNT INCLUDES THE [facility] Last Admin: 11/08/21 08:35 Dose: 40 mg Documented by: Enoxaparin Sodium (Enoxaparin 40 Mg/0.4 Ml Syringe) 40 mg SQ DAILY COUNT INCLUDES THE [facility] Last Admin: 11/08/21 08:43 Dose: 40 mg Documented by: Estradiol (Estradiol 1 Mg Tablet) 1 mg PO QDAY COUNT INCLUDES THE [facility] Last Admin: 11/08/21 08:36 Dose: 1 mg Documented by: Fish Oil (Fish Oil 1,000 Mg Capsule) 1,000 mg PO DAILY COUNT INCLUDES THE [facility] Last Admin: 11/08/21 08:31 Dose: Not Given Documented by: Glucosamine/Chondroitin (Glucosamine/Chondroitin Sulf A 1 Cap Capsule) 1 cap PO BID COUNT INCLUDES THE [facility] Last Admin: 11/08/21 08:35 Dose: 1 cap Documented by: Sodium Chloride (Sodium Chloride 0.9%) 250 mls @ 20 mls/hr IV .[id number] COUNT INCLUDES THE [facility] Last Admin: 11/08/21 10:47 Dose: Not Given Documented by: Potassium Chloride 40 meq/ (Dextrose) 520 mls @ 130 mls/hr IV ONCE ONE Stop: 11/08/21 15:49 Last Admin: 11/08/21 12:37 Dose: 130 mls/hr Documented by: Ibuprofen (Ibuprofen 600 Mg Tablet) 600 mg PO Q8H PRN; Protocol PRN Reason: pain Last Admin: 11/08/21 14:00 Dose: 600 mg Documented by: Morphine Sulfate (Morphine 4 Mg/Ml Vial) 4 mg IV Q2HP PRN; Protocol PRN Reason: Per Pain Protocol Ondansetron HCl (Ondansetron 4 Mg/2 Ml Vial) 4 mg IV Q4-6HP PRN; Protocol PRN Reason: Nausea And Vomiting Last Admin: 11/08/21 12:13 Dose: 4 mg Documented by: Ginkgo Biloba 40 Mg (Capsule) 1 dose PO BID COUNT INCLUDES THE [facility] Last Admin: 11/08/21 08:26 Dose: Not Given Documented by: Potassium Chloride (Potassium Chloride 20 Meq Tablet) 20 meq PO BIDCC COUNT INCLUDES THE [facility] Senna (Sennosides 8.8 Mg/5 Ml Ml) 8.8 mg PT DAILYP PRN PRN Reason: Constipation Simvastatin (Simvastatin 10 Mg Tablet) 5 mg PO HS COUNT INCLUDES THE [facility] Last Admin: 11/07/21 20:04 Dose: 5 mg Documented by: Sodium Chloride (0.9 % Sodium Chloride 10 Ml Syringe) 10 ml IV Q8 COUNT INCLUDES THE [facility] Last Admin: 11/08/21 13:33 Dose: 10 ml Documented by: A/P Narrative A/P Narrative: Assessment: 71-year-old female with a history of hypertension, dyslipidemia, uterine prolapse, osteoarthritis admitted for sepsis secondary to presumed pyelonephritis. Urine and blood cultures have not grown any organisms probably because the patient was on antibiotics before presenting to the ED the second time and admitted for sepsis. Imaging with CT and ultrasound showed gallbladder wall thickening and pericholecystic fluid, general surgery does not feel the patient has acute cholecystitis and these findings are instead secondary to volume overload from IV fluid received during sepsis treatment. #Presumed pyelonephritis #Resolved sepsis #Volume overload d/t IV fluid #Gallbladder wall thickening and pericholcystic fluid due to volume overload #Hypokalemia #Hyponatremia #Essential hypertension #Dyslipidemia #Osteoarthritis Plan -Transition to oral Ciprofloxacin 500 mg BID, discontinue Zosyn. -remains volume oveloaded on exam, continue IV lasix, 40 bidd, get Echo -Potassium supplementation incrased to 20bid as well as IV 40meq -Follow blood and urine cultures. NGTD so far -Hold home oral antihypertensives for now. -Continue essential home medications. -DVT prophylaxis: Lovenox -CODE STATUS: Full -Disposition: Home when stable on oral ciprofloxacin for 5-7 days. Time Spent With Patient Time: Total time spent is greater than 50% in coordination of care (as documented) at patient's floor/unit and/or counseling patient: Total time spent with greater than 50% in coordination of care (as documented) at patient's floor/unit and/or counseling patient:: Greater than 35 minutes QUALITY VTE Deep Vein Thrombosis/Pulmonary Embolism Present on Admission: No
[2021-11-08] MEDS: FUROSEMIDE 40 MG/4 ML VIAL IV SCH ×2 (15:36→15:50)
[2021-11-08] MEDS: POTASSIUM CHLORIDE 20 MEQ TABLET PO SCH (16:44)
[2021-11-08] MEDS ORDERED: ZOLPIDEM 5 MG TABLET PO SCH (16:45)
[2021-11-08] MEDS: SIMVASTATIN 10 MG TABLET PO SCH (21:52)
[2021-11-09] MEDS: 0.9 % SODIUM CHLORIDE 250 ML IV SCH ×2 (02:43→12:32)
[2021-11-09] MEDS: 0.9 % SODIUM CHLORIDE 10 ML SYRINGE IV SCH ×2 (05:46→10:45)
[2021-11-09 07:20] LABS: Basophils # (Auto) 0.05 K/mcL (0.00-0.30); Basophils % (Auto) 0.5 % (0.0-2.0); Eosinophils # (Auto) 0.12 K/mcL (0.00-0.70); Eosinophils % (Auto) 1.1 % (0.0-7.0); Hematocrit 35.1 % (34.1-44.9); Hemoglobin 11.3 g/dL (11.2-15.7); Lymphocytes # (Auto) 2.06 K/mcL (1.50-4.80); Mean Cell Volume 98.6 fL (80.0-100.0); Mean Corpuscular HGB Conc 32.2 g/dL (31.0-36.0); Mean Platelet Volume 10.2 fL (7.4-10.4); Monocytes # (Auto) 2.24 K/mcL (0.10-0.90); Monocytes % (Auto) 20.6 % (1.0-12.0); Neutrophils % (Auto) 58.8 % (38.0-78.0); Platelet Count 182 K/mcL (140-440); RBC 3.56 M/mcL (3.59-5.38); Red Cell Distribution Width 13.5 % (11.5-14.5); WBC 10.9 K/mcL (4.5-11.0)
[2021-11-09 10:10] LABS: POC Blood Urea Nitrogen 5 mg/dL (6-20); POC CO2 27 mmol/L (22-30); POC Calcium, Ionized 1.21 mmEq/L (1.16-1.32); POC Chloride 91 mEq/L (96-108); POC Creatinine 0.7 mg/dL (0.6-1.2); POC Glucose, Random 116 mg/dL (70-105); POC Hematocrit 34 % (36-48); POC Potassium 3.3 mEql/L (3.3-5.1); POC Sodium 131 mEq/L (133-145)
[2021-11-09] MEDS: DOCUSATE SODIUM 100 MG CAPSULE PO SCH (10:25)
[2021-11-09] MEDS: ESTRADIOL 1 MG TABLET PO SCH (10:40)
[2021-11-09] MEDS: GLUCOSAMINE/CHONDROITIN SULF A 1 CAP CAPSULE PO SCH (10:40)
[2021-11-09] MEDS: CIPROFLOXACIN 500 MG TABLET PO SCH (10:41)
[2021-11-09] MEDS: POTASSIUM CHLORIDE 20 MEQ TABLET PO SCH ×2 (10:41→18:31)
[2021-11-09] MEDS: DULoxetine 20 MG CAPSULE PO SCH (10:41)
[2021-11-09] MEDS: FUROSEMIDE 40 MG/4 ML VIAL IV SCH ×2 (10:48→16:52)
--- NOTE | 2021-11-09 10:49 | Discharge Summary ---
Discharge Provider Provider Patient information: Note initiated : 11/09/21 at 10:47 am Service Date, if different from initiated Date: [] Patient: Florecita Branch 71 y/o F admitted on 11/05/21 for Syncope . Chief Complaint: [] Date of admission: 11/05/21 09:40 Discharge date: 11/09/21 Primary care physician: Brent Calvo DO Consults: 11/05/21 07:44 Consult to Physician [CONS] Stat Comment: Consulting Provider: Kashif Nur Reason For Exam: Physician to Consult 11/07/21 07:58 Consult to Physician [CONS] Routine Comment: Possible acalculous cholecystitis. Consulting Provider: Tasha Rausch Reason For Exam: Physician to Consult Attending physician on discharge: Ivette Charles Discharging clinician: Ivette Charles Discharge Meds Discharge Medications Home Medications antiarthritic combination no.2 900 mg tablet (glucosamine-chondroitin) 900 mg PO BID 07/06/17 [History Confirmed 11/05/21 Last Taken 11/03/21 21:00] calcium carbonate 500 mg-vitamin D3 10 mcg (400 unit) tablet (Calcium 500 + D) 1 tab PO BID 07/06/17 [History Confirmed 11/05/21 Last Taken 11/03/21 21:00] ginkgo biloba 40 mg capsule 40 mg PO BID 07/06/17 [History Confirmed 11/05/21 Last Taken 11/03/21 09:00] omega-3 fatty acids 1,000 mg capsule (Fish Oil Concentrate) 1,000 mg PO QDAY 07/06/17 [History Confirmed 11/05/21 Last Taken 11/03/21 09:00] colestipol 1 gram tablet 1 g PO PRN PRN tab 10/23/19 [History Confirmed 11/05/21 Last Taken Unknown] estradiol 1 mg tablet 1 mg PO QDAY #90 tab 10/21/20 [Rx Confirmed 11/05/21 Last Taken 11/03/21 21:00] ibuprofen 600 mg tablet 600 mg PO Q8H PRN #20 tab 12/17/20 [Rx Confirmed 11/05/21 Last Taken Unknown] triamterene 37.5 mg-hydrochlorothiazide 25 mg tablet 1 tab PO QDAY #90 tab 01/02/21 [Rx Confirmed 11/05/21 Last Taken 11/03/21 09:00] pravastatin 10 mg tablet 10 mg PO QHS #90 tab 03/17/21 [Rx Confirmed 11/05/21 Last Taken 11/03/21 21:00] duloxetine 40 mg capsule,delayed release 40 mg PO QDAY #90 cap 08/26/21 [Rx Confirmed 11/05/21 Last Taken 11/03/21 09:00] ondansetron 4 mg disintegrating tablet 4 mg PO Q8H PRN #6 tab 11/04/21 [Rx Confirmed 11/05/21 Last Taken Unknown] amlodipine 5 mg tablet 1 tab PO QHS 11/05/21 [History Confirmed 11/05/21 Last Taken 11/03/21 21:00] furosemide 20 mg tablet 20 mg PO QAM #14 tab 11/09/21 [Rx Last Taken Unknown] levofloxacin 500 mg tablet 500 mg PO Q24H #6 tab 11/09/21 [Rx Last Taken Unknown] ondansetron 4 mg disintegrating tablet 4 mg PO Q8H PRN #20 tab 11/09/21 [Rx Last Taken Unknown] potassium chloride 20 mEq tablet,extended release(part/cryst) (Klor-Con M) 20 meq PO BIDCC #30 tab 11/09/21 [Rx Last Taken Unknown] COURSE Hospital Course Hospital course: Ms. Branch is a 71 year old F history of generalized osteoarthritis, essential HTN, mixed dyslipidemia, uterine prolapse, presenting with 2-day history of shivering and upper back pain. There is no prior similar history. No recent history of urinary tract infections. She presented to our ED yesterday for shivering and upper back pain and was being diagnosed with urinary tract infections. She received a dose of Rocephin and was sent home. Earlier the day she presented fevers and uncontrolled shivering.. She is also complained of nausea. She is complained of upper back pain. She called EMS which brought her back to our ED for reevaluations. Her blood pressure was found to be low so she was started on Levophed as pressor. 30 cc/kg IV fluid boluses were started as part of the resuscitation's measures and admission request was called for pyelonephritis with septic shock. Labs significant for leukocytosis with WBC 18.6. Serum sodium 130 and serum potassium 3.1. Blood glucose 121. Lactic acid pending. Urine analysis suggest the presence of urinary tract infections The patient had a CT abdomen done which showed thickned gall bladder, Gen surg evalated patient and deemed that this is due to volume overload rather than true gall bladder infection. The patient was treated with IV fluids, pressors and IV antibiotics for management of septic shock secondary to Pyelonephritis. The patient urine cultur e was negative (suspect from previous abx use) Patient was weaned off pressors and was transitioned to oral ciprofloxacin. The patient takes colistipol at home and hence she is being discharged on once a day levofloxacin to help reduce drug interactions. During the hospitalization the patietn was given aggressive hydration, which resulted in her being volume overloaded, with high bnp, She was treated with IV diuresis, with good response, she will be discharged home with oral lasix for 14 day supply, she is also been given a higher dose of potassium as she was hypokalemic during the hospital stay. The patient is advised to follow up with her pcp in 1 week to see if ongoing lasix therapy is indicated. At the time of discharge the patient is hemodynamically stable, tolerating po well and ambulating by self in the room. All discharge instructions have been reviewed with the patient and her daughter to their satisfaction all questions answered Discharge diagnosis: Pyelonephritis Secondary discharge diagnosis: Acute Diastoilc CHF exacerbation Mild to moderate mitral regurgiation HTN Hypokalemia Chr Diarrhea Uterine Prolapse Reason for admission: pyelonephritis Time Spent with Patient Time attestation: Total time spent providing and/or coordinating discharge services: Time spent: Greater than 30 minutes EXAM Constitutional Vitals: Temp Pulse Resp BP Pulse Ox 98.1 F 80 20 128/70 95 11/09/21 08:00 11/09/21 04:00 11/09/21 08:00 11/09/21 08:00 11/09/21 08:00 Additional findings Additional findings: Physical Exam Constitutional; Afebrile, cooperative, alert, not in distress. Eyes- No icterus, , No periorbital swelling Ears- Ext ear normal, hearing normal to conversation. Neck- Midline trachea, supple Respiratory system: Air Entry equal on both sides, No crackles or wheezing, no rhonchi. CVS- Rate rhythm regular, S1,S2 heard, no gallop, no rub. Abdomen- Soft nontender abdomen, no organomegaly, no tenderness, no guarding or rigidity, STAINED GLASS JOINER- AOOx3, moving all extremities, no gross focal deficit noted. Discharge Data Data Completed and Pending Labs on day of discharge: Labs from last 24 hours 11/09/21 11/09/21 11/09/21 10:00 04:22 04:22 WBC 10.9 RBC 3.56 L Hgb 11.3 Hct 35.1 POC Hct 34 L MCV 98.6 MCH 31.7 MCHC 32.2 RDW 13.5 Plt Count 182 MPV 10.2 Neut % (Auto) 58.8 Lymph % (Auto) 19.0 [place] % (Auto) 20.6 H Eos % (Auto) 1.1 Baso % (Auto) 0.5 Lymph # (Auto) 2.06 [place] # (Auto) 2.24 H Eos # (Auto) 0.12 Baso # (Auto) 0.05 Absolute Neutrophils 6.38 POC Sodium 131 L Sodium POC Potassium 3.3 Potassium POC Chloride 91 L Chloride Carbon Dioxide POC Total CO2 27 Anion Gap POC BUN 5 L BUN Creatinine POC Creatinine 0.7 GFR Calculation Glucose POC Glucose 116 H Calcium POC WB Ioniz Calcium 1.21 Total Bilirubin AST ALT Alkaline Phosphatase NT-Pro-B Natriuret Pep 598.4 H Total Protein Albumin Globulin Albumin/Globulin Ratio 11/08/21 10:42 WBC RBC Hgb Hct POC Hct MCV MCH MCHC RDW Plt Count MPV Neut % (Auto) Lymph % (Auto) [place] % (Auto) Eos % (Auto) Baso % (Auto) Lymph # (Auto) [place] # (Auto) Eos # (Auto) Baso # (Auto) Absolute Neutrophils POC Sodium Sodium 133 POC Potassium Potassium 2.9 L* POC Chloride Chloride 94 L Carbon Dioxide 27 POC Total CO2 Anion Gap 12.0 POC BUN BUN 6 L Creatinine 0.6 POC Creatinine GFR Calculation 90 Glucose 154 H POC Glucose Calcium 8.7 POC WB Ioniz Calcium Total Bilirubin 0.3 AST 25 ALT 39 Alkaline Phosphatase 95 NT-Pro-B Natriuret Pep Total Protein 5.7 L Albumin 2.9 L Globulin 2.8 Albumin/Globulin Ratio 1.0 Preliminary micro results at discharge 11/05/21 05:55 Blood Culture - Preliminary Blood 11/05/21 05:26 Blood Culture - Preliminary Blood Discharge Plan Patient/Caregiver Discharge Instructions Activity: increase activity as tolerated Diet: Regular Diet Prescriptions: New potassium chloride [Klor-Con M20] 20 mEq Tablet,Er Particles/Crystals 20 meq PO BIDCC Qty: 30 0RF furosemide 20 mg tablet 20 mg PO QAM Qty: 14 0RF ondansetron 4 mg tablet,disintegrating 4 mg PO Q8H PRN (Reason: nausea and vomiting) Qty: 20 0RF levofloxacin 500 mg tablet 500 mg PO Q24H Qty: 6 0RF Continued estradiol 1 mg tablet 1 mg PO QDAY Qty: 90 3RF triamterene-hydrochlorothiazid 37.5-25 mg tablet 1 tab PO QDAY Qty: 90 3RF Label Comments: Sometimes will take one tablet pravastatin 10 mg tablet 10 mg PO QHS Qty: 90 3RF duloxetine 40 mg capsule,delayed release(DR/EC) 40 mg PO QDAY Qty: 90 3RF omega-3 fatty acids [Fish Oil Concentrate] 1,000 mg capsule 1,000 mg PO QDAY 0RF calcium carbonate-vitamin D3 [Calcium 500 + D] 500 mg(1,250mg) -400 unit tablet 1 tab PO BID 0RF antiarthritic combination no.2 [glucosamine-chondroitin] 900 mg tablet 900 mg PO BID 0RF ginkgo biloba 40 mg capsule 40 mg PO BID 0RF colestipol 1 gram tablet 1 g PO PRN PRN (Reason: Diarrhea) 0RF Label Comments: Rx from Michelle Mustafa Rx Instructions: Up to 6 tablets/day ibuprofen 600 mg tablet 600 mg PO Q8H PRN (Reason: pain) Qty: 20 0RF ondansetron 4 mg tablet,disintegrating 4 mg PO Q8H PRN (Reason: nausea and vomiting) Qty: 6 0RF amlodipine 5 mg tablet 1 tab PO QHS 0RF Discontinued potassium chloride 10 mEq tablet extended release 10 meq PO QDAY Qty: 90 3RF Follow Up Plan Follow up with: Brent Calvo DO [Primary Care Provider] - Patient Disposition: Home, Self-Care Care Plan Goals: Follow up with your PCP in 1 week Take levofloxacin 500mg daily x 6 more days. Take furosemide (water pill) for 7 moredays, your PCP will decide at the follow up visit if you need to continue this medication The dose of potassium supplement has been increased from 10meq daily to 20 meq Twice daily, once you finish the lasix course, you will need to discuss with your PCP and go back to previous dosing of potassium supplementation. Take zofran 4mg as needed every 8 hrs for nausea and vomiting. If you develop fever, chills, flank pains or any other acute concerning symptom, call your PCP or go to the ER to seek prompt attention Prognosis: Serious Rehab Potential: Fair I certify that the patient requires SNF services: No Overall status at discharge: patient is progressing back to baseline Discharge Orders: Discharge Order (Routine); Ordered 11/09/21 Ordered By: Ivette Charles Discharge Comment: PCP follow up 1 week. QUALITY VTE Deep Vein Thrombosis/Pulmonary Embolism Present on Admission: No
[2021-11-09] MEDS: ENOXAPARIN 40 MG/0.4 ML SYRINGE SQ SCH (11:04)
[2021-11-09] MEDS: FISH OIL 1,000 MG CAPSULE PO SCH (12:31)
[2021-11-09] MEDS: CALCIUM W/VIT D3 500 MG TABLET PO SCH (12:31)
[2021-11-09] MEDS: ACETAMINOPHEN 325 MG TABLET PO PRN (12:45)
== END 2021-11-09 17:41 | disposition home or self-care (01) | DRG 871 ==
LOC: ED 05:21 → ICU 09:40 → MEDSUR 11-06 16:55
PROVIDERS: ADMIT Internal Medicine; ATTEND Internal Medicine

== ENCOUNTER 2021-11-21 22:31 | Observation (INO) ==
[2021-11-21] MEDS ORDERED: IOPAMIDOL 100 ML BOTTLE IV ONE (22:32)
--- NOTE | 2021-11-21 23:08 | Emergency Department Note ---
HPI General Chief complaint: Urogenital-Female Stated complaint: UTI symptoms Time Seen by Provider: 11/21/21 22:43 Source: patient Mode of arrival: ambulatory Limitations: no limitations History of Present Illness HPI Narrative: 71-year-old female presents with generalized weakness body aches x1 day. States that she was recently seen admitted to the hospital for septic shock in November 05 secondary to urinary tract infection. Was on Levophed per review of records. Discharge on November 09, completed Levoquin and was started on 7 day course of lasix 2/2 acute fluid overload which she has completed. Did follow-up with her primary care doctor on November 18. her amlodipine was decreased to 2.5 mg by PCP on the thinking that a slighter higher pressure 130s may help with her symptoms of fatigue brain fog. labs were sent, reviewed on EMR and unremarkable except for Na 129 and mild transaminitis, thrombocytosis noted. She did take Motrin at approximately 10 PM secondary to generalized body aches and chills. No nausea vomiting but decreased appetite. No abdominal pain. Does have some mild left flank discomfort that she noticed tonight. No urinary symptoms of dysuria urgency frequency hematuria though states no urinary symptoms in October. No cough cold-like symptoms. No chest pain shortness of breath. Continues to have this brain fog since her recent hospitalization which her PCP reassured her to expect for the next couple months during recovery. She states that she is triple vaccinated against Covid Related Data Home Medications Medication Instructions Recorded Confirmed antiarthritic combination no.2 900 900 mg PO BID 07/06/17 11/18/21 mg tablet (glucosamine-chondroitin) calcium carbonate 500 mg-vitamin 1 tab PO BID 07/06/17 11/18/21 D3 10 mcg (400 unit) tablet (Calcium 500 + D) ginkgo biloba 40 mg capsule 40 mg PO BID 07/06/17 11/18/21 omega-3 fatty acids 1,000 mg 1,000 mg PO QDAY 07/06/17 11/18/21 capsule (Fish Oil Concentrate) colestipol 1 gram tablet 1 g PO PRN PRN tab 10/23/19 11/18/21 amlodipine 5 mg tablet 2.5 mg PO QHS tab 11/18/21 11/18/21 ondansetron 4 mg disintegrating 1 tab PO Q8HP PRN 11/22/21 11/22/21 tablet Previous Rx's Medication Instructions Recorded ibuprofen 600 mg tablet 600 mg PO Q8H PRN #20 tab 12/17/20 triamterene 37.5 1 tab PO QDAY #90 tab 01/02/21 mg-hydrochlorothiazide 25 mg tablet pravastatin 10 mg tablet 10 mg PO QHS #90 tab 03/17/21 duloxetine 40 mg capsule,delayed 40 mg PO QDAY #90 cap 08/26/21 release estradiol 1 mg tablet 1 mg PO QDAY #90 tab 11/18/21 potassium chloride 10 mEq 10 meq PO QDAY #90 tab 11/18/21 tablet,extended release(part/cryst) Allergies Allergy/AdvReac Type Severity Reaction Status Date / Time dexamethasone [From Decadron] AdvReac Intermediate Flushing,pa Verified 11/21/21 22:37 in metoclopramide [From Reglan] AdvReac Intermediate Shakiness Verified 11/21/21 22:37 hydrocodone AdvReac Mild vomiting Verified 11/21/21 22:37 oxycodone AdvReac Mild Vomiting Verified 11/21/21 22:37 tramadol AdvReac Mild Vomiting Verified 11/21/21 22:37 Review of Systems ROS ROS Narrative: 10 point review of system is otherwise negative except as mentioned in HPI. 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) Acute neck pain (Acute) Medicare annual wellness visit, initial (Acute) Osteoarthritis of right hip (Acute) Weight loss (Acute) Motion sickness (Chronic) Tubular adenoma (Chronic) Myofascial pain (Chronic) Vaginal prolapse (Chronic) Hip pain (Chronic) Thoracic back pain (Acute) Back pain (Chronic) Seborrheic keratoses (Chronic) Enterocele (Chronic) Rectocele (Chronic) Neck pain (Chronic) Osteoarthritis (Chronic) Rectal irritation (Chronic) 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) Greater trochanteric bursitis of right hip (Chronic) Cervical spinal stenosis (Chronic) Greater trochanteric bursitis of both hips (Chronic) Positional vertigo (Chronic) Vasomotor instability (Chronic) Seborrheic dermatitis (Chronic) Rosacea (Chronic) Rectocele (Chronic) Proctitis (Chronic) Paresthesia (Chronic) Hypertension, essential (Chronic) Hyperlipidemia (Chronic) Hormone replacement therapy (Chronic) Fatigue (Chronic) Dermatitis (Chronic) Cystocele (Chronic) Chest pain (Chronic) Bursitis (Chronic) Medical History (Updated 11/22/21 @ 02:34 by Nedra Santana MD) Back pain Much improved on Cymbalta She also takes ibuprofen 600 mg once daily Bursitis Greater trochanteric Cervical radiculopathy Cervical spinal stenosis Consider referral back to [facility] if exacerbations increase in frequency or worsen. Chest pain Intermittent atypical Cystocele Dermatitis Facial and Arm Diarrhea Resolved. She had her surgery to repair her pelvic prolapse, and this resolved her diarrhea. Drug-induced nausea and vomiting Enterocele Fatigue Fibrocystic breast disease History of Foraminal stenosis of cervical region Left C4-5 & C5-6 Greater trochanteric bursitis of both hips Corticosteroid injections to bilateral bursas today. Tolerated well. Greater trochanteric bursitis of right hip Received a dose of morphine in the ER last month, which helped at the time, and states that she is doing well now Steroid injections help when needed History of ovarian cancer Hormone replacement therapy She continues on HRT for hot flashes, understands the potential risks, and does not want to reduce the dose Hyperlipidemia Well-controlled on pravastatin 10 mg nightly. Tolerated well. Hypertension, essential Well-controlled on amlodipine 10 mg daily and triamterenehydrochlorothiazide 37.5-25 mg daily. Slightly overtreated. Decrease amlodipine to 5 mg daily and monitor blood pressure once every week or 2. Goal of around 120-130/80. Hypokalemia Potassium 3.0 ER last month Likely secondary to diuretics Start KCl 10 mEq daily We will check potassium today also Hyponatremia Hyponatremia Inflamed seborrheic keratosis Right shoulder. Treated with cryotherapy today. Tolerated well. Intentional weight loss 37 pounds Medicare annual wellness visit, initial Motion sickness Long history of nausea. Patient takes Zofran occasionally which helps. Muscle pain Muscle spasms Neck pain Much improved on Cymbalta She also takes ibuprofen 600 mg once daily Osteoarthritis Osteoarthritis cervical spine Left trapezius pain. Paresthesia Personal history of ovarian cancer Remote History Positional vertigo Proctitis Ulcerative Rectal irritation Recurring Rectocele Rectocele Rosacea Seborrheic dermatitis Sepsis due to urinary tract infection Vasomotor instability Patient understands risks of taking estradiol is hormone replacement therapy, and wants to continue. Weight loss Approximately 40 pound weight loss, which is partly intentional. She states the last 10 pounds were unintentional. She states that his now plateaued. Weight does appear to be stable over the last several months. Patient will continue to monitor weight at home. Surgical History (Updated 11/18/21 @ 10:34 by Brent Calvo DO) History of cataract surgery 2012 bilateral History of colonoscopy 05/27/2012 Micro: Hyperplastic Polyp. [address] Sandoval. 03/01/2019 TA. 3-year follow-up. 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 Right Upper Chin Lesion: Neurotized Intradermal Nevus, Nevus cells present at lateral resection margin. History of tonsillectomy Family History Father Chronic obstructive pulmonary disease Mother Cardiac disease Social History Smoking Status: Never smoker Alcohol Intake Frequency: does not drink Substance Use: does not use Exam Narrative Narrative: (Please note that portions of this note may have been completed with a voice recognition program. Efforts were made to edit the dictations but occasionally words are mis-transcribed) CONSTITUTIONAL: Well-nourished well-hydrated elderly female. Resting comfortably. Not in acute distress. Non toxic. Awake alert and oriented x3. Cooperative, follows commands. HEAD: Normocephalic. Atraumatic. EYES: EOMI ENT: Mask NECK: Supple. Full range of motion. Trachea midline CARDIOVASCULAR: Adequate peripheral perfusion. S1-S2. Regular rate and rhythm. No murmurs rubs gallops. No JVD. No lower extremity edema. +2 radial pulses bilaterally. PULMONARY: Nonlabored. Speaking full sentences. Clear to auscultation bilaterally. No rhonchi wheeze or crackles. ABDOMINAL: Soft. Nondistended. Nontender. Positive bowel sounds. no CVA ttp though points to left flank where she had discomfort EXTREMITIES: No gross deformities. Moves all 4 extremities with good strength and tone. SKIN: Warm and dry. No rash. No petechiae. NEUROLOGY: Sensation is intact. No gross focal deficits. GCS of 15 General Limitations: no limitations Course Vital Signs Vital signs: Vital Signs Temperature 36.8 C 11/21/21 22:32 Pulse Rate 85 11/21/21 22:32 Respiratory Rate 16 11/21/21 22:32 Blood Pressure 151/66 11/21/21 22:32 Pulse Oximetry (%) 95 11/21/21 22:32 Temperature 36.8 C 11/21/21 22:32 Pulse Rate 80 11/22/21 02:16 Respiratory Rate 18 11/22/21 02:16 Blood Pressure 105/50 11/22/21 02:16 Pulse Oximetry (%) 90 11/22/21 02:16 MDM MDM Narrative Medical decision making narrative: Differential gnosis includes deconditioning from recent hospitalization fatigue viral syndrome UTI pyelonephritis sepsis bacteremia pneumonia electrolyte abnormality acute renal failure etc. P.o. fluids were given. Labs blood cultures were drawn. Twelve-lead EKG per ED MD interpretation shows normal sinus rhythm at 80 bpm. Normal axis. No ST elevations or depressions. No T wave abnormalities. No ectopy. Normal pulse. No old EKG. urine dip does show blood leukocyte esterase. Formal urine analysis with culture will be sent. Labs do show white count of 20,000. IV Zosyn fluids were ordered. She did tolerate approximately [address] chest abdomen pelvis was ordered. And per radiologist does show acute diverticulitis of the descending sigmoid colon. No abscess perforation. Patient was updated on results clinic impressions treatment plan. Heart rate has been stable however blood pressure is trending down slightly in the 1 teens. She states improvement in symptoms after fluids. Concerned that she may decompensate. We will hold her BP meds and I do recommend obs admission. Agreeable. Dr. Cesar was spoken to reviewed chart and does accept for med abs. Final impression: 1. Acute sigmoid diverticulitis 2. Sepsis Lab Data Result diagrams: 11/21/21 23:02 11/21/21 23:02 Labs: Lab Results 11/21/21 11/21/21 11/21/21 Range/Units 23:02 23:02 23:02 WBC 20.1 H (4.5-11.0) K/mcL RBC 3.83 (3.59-5.38) M/mcL Hgb 11.8 (11.2-15.7) g/dL Hct 35.2 (34.1-44.9) % MCV 91.9 (80.0-100.0) fL MCH 30.8 (26.0-34.0) pg MCHC 33.5 (31.0-36.0) g/dL RDW 13.2 (11.5-14.5) % Plt Count 594 H (140-440) K/mcL MPV 9.6 (7.4-10.4) fL Neut % (Auto) 74.7 (38.0-78.0) % Lymph % (Auto) 13.0 L (15.5-49.0) % Frontier % (Auto) 10.7 (1.0-12.0) % Eos % (Auto) 1.2 (0.0-7.0) % Baso % (Auto) 0.4 (0.0-2.0) % Lymph # (Auto) 2.62 (1.50-4.80) K/mcL Frontier # (Auto) 2.15 H (0.10-0.90) K/mcL Eos # (Auto) 0.25 (0.00-0.70) K/mcL Baso # (Auto) 0.09 (0.00-0.30) K/mcL Absolute Neutrophils 15.03 H (1.80-8.00) K/mcL Sodium 134 (133-145) mmol/L Potassium 4.1 (3.3-5.1) mmol/L Chloride 97 (96-108) mmol/L Carbon Dioxide 26 (22-30) mmol/L Anion Gap 11.0 (8.0-16.0) BUN 17 (8-23) mg/dL Creatinine 0.6 (0.6-1.1) mg/dL GFR Calculation 90 Glucose 106 H (70-105) mg/dL Calcium 9.0 (8.6-10.4) mg/dL Magnesium 1.9 (1.6-2.5) mg/dL Total Bilirubin 0.2 (0.1-1.0) mg/dL AST 29 (<32) U/L ALT 43 H (<40) U/L Alkaline Phosphatase 93 (39-117) U/L Troponin T < 0.01 (<0.03) ng/mL NT-Pro-B Natriuret Pep 93.1 (<125.0) pg/mL Total Protein 6.4 (5.9-8.4) gm/dL Albumin 3.6 (3.2-5.2) gm/dL Globulin 2.8 (2.2-3.7) gm/dL Albumin/Globulin Ratio 1.3 (1.0-2.3) Urine Color Urine Appearance (Clear) Urine pH (5.0-9.0) Ur Specific [place] (1.000-1.035) Urine Protein (Negative) mg/dL Urine Glucose (UA) (Negative) mg/dL Urine Ketones (Negative) mg/dL Urine Occult Blood (Negative) raheem/mcL Urine Nitrate (Negative) Urine Bilirubin (Negative) mg/dL Urine Urobilinogen mg/dL Ur Leukocyte Esterase (Negative) /uL Urine RBC (0-3) /hpf Urine WBC (0-4) /hpf Ur Squamous Epith Cells (0-4) /hpf Urine Bacteria (0) /hpf Ur Culture Indicated? 11/21/21 Range/Units 23:18 WBC (4.5-11.0) K/mcL RBC (3.59-5.38) M/mcL Hgb (11.2-15.7) g/dL Hct (34.1-44.9) % MCV (80.0-100.0) fL MCH (26.0-34.0) pg MCHC (31.0-36.0) g/dL RDW (11.5-14.5) % Plt Count (140-440) K/mcL MPV (7.4-10.4) fL Neut % (Auto) (38.0-78.0) % Lymph % (Auto) (15.5-49.0) % Frontier % (Auto) (1.0-12.0) % Eos % (Auto) (0.0-7.0) % Baso % (Auto) (0.0-2.0) % Lymph # (Auto) (1.50-4.80) K/mcL Frontier # (Auto) (0.10-0.90) K/mcL Eos # (Auto) (0.00-0.70) K/mcL Baso # (Auto) (0.00-0.30) K/mcL Absolute Neutrophils (1.80-8.00) K/mcL Sodium (133-145) mmol/L Potassium (3.3-5.1) mmol/L Chloride (96-108) mmol/L Carbon Dioxide (22-30) mmol/L Anion Gap (8.0-16.0) BUN (8-23) mg/dL Creatinine (0.6-1.1) mg/dL GFR Calculation Glucose (70-105) mg/dL Calcium (8.6-10.4) mg/dL Magnesium (1.6-2.5) mg/dL Total Bilirubin (0.1-1.0) mg/dL AST (<32) U/L ALT (<40) U/L Alkaline Phosphatase (39-117) U/L Troponin T (<0.03) ng/mL NT-Pro-B Natriuret Pep (<125.0) pg/mL Total Protein (5.9-8.4) gm/dL Albumin (3.2-5.2) gm/dL Globulin (2.2-3.7) gm/dL Albumin/Globulin Ratio (1.0-2.3) Urine Color Yellow Urine Appearance Clear (Clear) Urine pH 7.5 (5.0-9.0) Ur Specific [place] 1.015 (1.000-1.035) Urine Protein Negative (Negative) mg/dL Urine Glucose (UA) Negative (Negative) mg/dL Urine Ketones Negative (Negative) mg/dL Urine Occult Blood Small A (Negative) raheem/mcL Urine Nitrate Negative (Negative) Urine Bilirubin Negative (Negative) mg/dL Urine Urobilinogen Normal mg/dL Ur Leukocyte Esterase Trace A (Negative) /uL Urine RBC < 1 (0-3) /hpf Urine WBC 6 H (0-4) /hpf Ur Squamous Epith Cells 10 H (0-4) /hpf Urine Bacteria None (0) /hpf Ur Culture Indicated? No ED POC Tests ED POC Tests: ALEX - SARS Antigen Negative Discharge Plan Patient/Caregiver Discharge Instructions Pt seen by [employer]/PA only: No Clinical Impression: Diverticulitis Patient Disposition: Xfer As Outpt/Obs ([facility]) Condition: Fair Follow up with: Brent Calvo DO [Primary Care Provider] - Prescriptions: No Action triamterene-hydrochlorothiazid 37.5-25 mg tablet 1 tab PO QDAY Qty: 90 3RF Label Comments: Sometimes will take one tablet pravastatin 10 mg tablet 10 mg PO QHS Qty: 90 3RF duloxetine 40 mg capsule,delayed release(DR/EC) 40 mg PO QDAY Qty: 90 3RF omega-3 fatty acids [Fish Oil Concentrate] 1,000 mg capsule 1,000 mg PO QDAY 0RF calcium carbonate-vitamin D3 [Calcium 500 + D] 500 mg(1,250mg) -400 unit tablet 1 tab PO BID 0RF antiarthritic combination no.2 [glucosamine-chondroitin] 900 mg tablet 900 mg PO BID 0RF ginkgo biloba 40 mg capsule 40 mg PO BID 0RF colestipol 1 gram tablet 1 g PO PRN PRN (Reason: Diarrhea) 0RF Label Comments: Rx from Michelle Mustafa Rx Instructions: Up to 6 tablets/day ibuprofen 600 mg tablet 600 mg PO Q8H PRN (Reason: pain) Qty: 20 0RF estradiol 1 mg tablet 1 mg PO QDAY Qty: 90 3RF potassium chloride 10 mEq tablet,ER particles/crystals 10 meq PO QDAY Qty: 90 3RF amlodipine 5 mg tablet 2.5 mg PO QHS 0RF ondansetron 4 mg tablet,disintegrating 1 tab PO Q8HP PRN (Reason: Nausea) 0RF
[2021-11-21 23:57] LABS: Basophils # (Auto) 0.09 K/mcL (0.00-0.30); Basophils % (Auto) 0.4 % (0.0-2.0); Eosinophils # (Auto) 0.25 K/mcL (0.00-0.70); Eosinophils % (Auto) 1.2 % (0.0-7.0); Hematocrit 35.2 % (34.1-44.9); Hemoglobin 11.8 g/dL (11.2-15.7); Lymphocytes # (Auto) 2.62 K/mcL (1.50-4.80); Mean Cell Volume 91.9 fL (80.0-100.0); Mean Corpuscular HGB Conc 33.5 g/dL (31.0-36.0); Mean Platelet Volume 9.6 fL (7.4-10.4); Monocytes # (Auto) 2.15 K/mcL (0.10-0.90); Monocytes % (Auto) 10.7 % (1.0-12.0); Neutrophils % (Auto) 74.7 % (38.0-78.0); Platelet Count 594 K/mcL (140-440); RBC 3.83 M/mcL (3.59-5.38); Red Cell Distribution Width 13.2 % (11.5-14.5); WBC 20.1 K/mcL (4.5-11.0)
[2021-11-22] MEDS ORDERED: 0.9 % SODIUM CHLORIDE 1,000 ML IV ONE (00:13)
[2021-11-22] MEDS ORDERED: PIPERACILLIN SODIUM/TAZOBACTAM 4.5 GM in DEXTROSE 5% IN WATER 50 ML IV ONE (00:16)
[2021-11-22 00:20] LABS: proBNP 93.1 pg/mL (<125.0)
[2021-11-22 00:22] LABS: Appearance,Urine Clear (Clear); Bilirubin,Urine Negative (Negative); Color,Urine Yellow; Culture Indicated,Urine No; Glucose,Urine (UA) Negative (Negative); Ketones,Urine Negative (Negative); Leukocyte Esterase,Urine Trace /uL (Negative); Nitrate,Urine Negative (Negative); PH,Urine 7.5 (5.0-9.0); Protein,Urine Negative (Negative); Specific Gravity,Urine 1.015 (1.000-1.035); Urine Blood Small ery/mcL (Negative); Urine RBC < 1 /hpf (0-3); Urine Squamous Epithelial Cell 10 /hpf (0-4); Urine WBC 6 /hpf (0-4); Urobilinogen,Urine Normal
[2021-11-22 00:23] LABS: ALT/SGPT 43 U/L (<40); AST/SGOT 29 U/L (<32); Albumin 3.6 gm/dL (3.2-5.2); Albumin/Globulin Ratio 1.3 (1.0-2.3); Alkaline Phosphatase 93 U/L (39-117); Bilirubin,Total 0.2 mg/dL (0.1-1.0); Blood Urea Nitrogen 17 mg/dL (8-23); Carbon Dioxide 26 mmol/L (22-30); Chloride 97 mmol/L (96-108); Globulin 2.8 gm/dL (2.2-3.7); Glomerular Filtration Rate 90; Glucose 106 mg/dL (70-105)
--- NOTE | 2021-11-22 02:44 | Internal Med History&Physical ---
HPI History of Present Illness Patient information: Note initiated : 11/22/21 at 2:37 am Service Date, if different from initiated Date: [] Patient: Florecita Branch a 71 y/o F admitted on for UTI symptoms. Chief Complaint: [] Chief complaint: Generalized weakness History of present illness: Ms. Branch is a 71 year old female with a history of hypertension, hyperlipemia, depression, recent hospitalization for sepsis presumed secondary to pyelonephritis (negative urine cultures), multiple recent courses of antibiotics presented to the ED for generalized weakness, fatigueand myalgias and found to have acute diverticulitis of the sigmoid colon on CT chest abdomen pelvis with contrast. Work-up was also remarkable for leukocytosis. [place]ced[place] SARS-CoV-2 antigen negative. Review of systems Constitutional: Positive for chills and fatigue Eyes: no vision changes or pain Cardiovascular: no chest pain, no palpitations Respiratory: no cough or dyspnea Gastrointestinal: Positive for left lower quadrant abdominal pain. Genitourinary: no dysuria or difficulty voiding Musculoskeletal: no arthralgia or myalgia Integumentary: no skin lesion or wound Neurological: no focal weakness or numbness Psychiatric: no anxiety or depression Physical exam Head: Atraumatic, normal inspection. Eyes: normal appearance, no scleral icterus. Neck: full ROM Respiratory: no respiratory distress. Cardiovascular: normal rate and rhythm, S1, S2. GI/Abdominal: soft, nontender, no guarding, rebound tenderness present left lower quadrant. Extremities: full range of motion, nontender. Neurological: CN II-XII intact, intact motor, intact sensation. Psychiatric: normal mood. 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) Acute neck pain (Acute) Medicare annual wellness visit, initial (Acute) Osteoarthritis of right hip (Acute) Weight loss (Acute) Motion sickness (Chronic) Tubular adenoma (Chronic) Myofascial pain (Chronic) Vaginal prolapse (Chronic) Hip pain (Chronic) Thoracic back pain (Acute) Back pain (Chronic) Seborrheic keratoses (Chronic) Enterocele (Chronic) Rectocele (Chronic) Neck pain (Chronic) Osteoarthritis (Chronic) Rectal irritation (Chronic) 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) Greater trochanteric bursitis of right hip (Chronic) Cervical spinal stenosis (Chronic) Greater trochanteric bursitis of both hips (Chronic) Positional vertigo (Chronic) Vasomotor instability (Chronic) Seborrheic dermatitis (Chronic) Rosacea (Chronic) Rectocele (Chronic) Proctitis (Chronic) Paresthesia (Chronic) Hypertension, essential (Chronic) Hyperlipidemia (Chronic) Hormone replacement therapy (Chronic) Fatigue (Chronic) Dermatitis (Chronic) Cystocele (Chronic) Chest pain (Chronic) Bursitis (Chronic) Medical History (Updated 11/22/21 @ 02:34 by Nedra Santana MD) Back pain Much improved on Cymbalta She also takes ibuprofen 600 mg once daily Bursitis Greater trochanteric Cervical radiculopathy Cervical spinal stenosis Consider referral back to [facility] if exacerbations increase in frequency or worsen. Chest pain Intermittent atypical Cystocele Dermatitis Facial and Arm Diarrhea Resolved. She had her surgery to repair her pelvic prolapse, and this resolved her diarrhea. Drug-induced nausea and vomiting Enterocele Fatigue Fibrocystic breast disease History of Foraminal stenosis of cervical region Left C4-5 & C5-6 Greater trochanteric bursitis of both hips Corticosteroid injections to bilateral bursas today. Tolerated well. Greater trochanteric bursitis of right hip Received a dose of morphine in the ER last month, which helped at the time, and states that she is doing well now Steroid injections help when needed History of ovarian cancer Hormone replacement therapy She continues on HRT for hot flashes, understands the potential risks, and does not want to reduce the dose Hyperlipidemia Well-controlled on pravastatin 10 mg nightly. Tolerated well. Hypertension, essential Well-controlled on amlodipine 10 mg daily and triamterenehydrochlorothiazide 37.5-25 mg daily. Slightly overtreated. Decrease amlodipine to 5 mg daily and monitor blood pressure once every week or 2. Goal of around 120-130/80. Hypokalemia Potassium 3.0 ER last month Likely secondary to diuretics Start KCl 10 mEq daily We will check potassium today also Hyponatremia Hyponatremia Inflamed seborrheic keratosis Right shoulder. Treated with cryotherapy today. Tolerated well. Intentional weight loss 37 pounds Medicare annual wellness visit, initial Motion sickness Long history of nausea. Patient takes Zofran occasionally which helps. Muscle pain Muscle spasms Neck pain Much improved on Cymbalta She also takes ibuprofen 600 mg once daily Osteoarthritis Osteoarthritis cervical spine Left trapezius pain. Paresthesia Personal history of ovarian cancer Remote History Positional vertigo Proctitis Ulcerative Rectal irritation Recurring Rectocele Rectocele Rosacea Seborrheic dermatitis Sepsis due to urinary tract infection Vasomotor instability Patient understands risks of taking estradiol is hormone replacement therapy, and wants to continue. Weight loss Approximately 40 pound weight loss, which is partly intentional. She states the last 10 pounds were unintentional. She states that his now plateaued. Weight does appear to be stable over the last several months. Patient will continue to monitor weight at home. Surgical History (Updated 11/18/21 @ 10:34 by Brent Calvo DO) History of cataract surgery 2012 bilateral History of colonoscopy 05/27/2012 Micro: Hyperplastic Polyp. [address] Sandoval. 03/01/2019 TA. 3-year follow-up. 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 Right Upper Chin Lesion: Neurotized Intradermal Nevus, Nevus cells present at lateral resection margin. History of tonsillectomy Family History Father Chronic obstructive pulmonary disease Mother Cardiac disease Social History household members: spouse housing: house lives independently: Yes marital status: education level: college occupational status: retired occupation: teacher other: 2 Adult Children, 4 Grandchildren smoking status: Never smoker alcohol intake frequency: does not drink substance use type: does not use MEDS/ALLERGIES Home Medications and Allergies Home Medications Medication Instructions Recorded Confirmed Type antiarthritic combination no.2 900 900 mg PO BID 07/06/17 11/22/21 History mg tablet (glucosamine-chondroitin) calcium carbonate 500 mg-vitamin 1 tab PO BID 07/06/17 11/22/21 History D3 10 mcg (400 unit) tablet (Calcium 500 + D) ginkgo biloba 40 mg capsule 40 mg PO BID 07/06/17 11/22/21 History omega-3 fatty acids 1,000 mg 1,000 mg PO QDAY 07/06/17 11/22/21 History capsule (Fish Oil Concentrate) colestipol 1 gram tablet 1 g PO PRN PRN tab 10/23/19 11/22/21 History ibuprofen 600 mg tablet 600 mg PO Q8H PRN #20 tab 12/17/20 11/22/21 Rx triamterene 37.5 1 tab PO QDAY #90 tab 01/02/21 11/22/21 Rx mg-hydrochlorothiazide 25 mg tablet pravastatin 10 mg tablet 10 mg PO QHS #90 tab 03/17/21 11/22/21 Rx duloxetine 40 mg capsule,delayed 40 mg PO QDAY #90 cap 08/26/21 11/22/21 Rx release amlodipine 5 mg tablet 2.5 mg PO QHS tab 11/18/21 11/22/21 History estradiol 1 mg tablet 1 mg PO QDAY #90 tab 11/18/21 11/22/21 Rx potassium chloride 10 mEq 10 meq PO QDAY #90 tab 11/18/21 11/22/21 Rx tablet,extended release(part/cryst) ondansetron 4 mg disintegrating 1 tab PO Q8HP PRN 11/22/21 11/22/21 History tablet Allergies Allergy/AdvReac Type Severity Reaction Status Date / Time dexamethasone [From Decadron] AdvReac Intermediate Flushing,pa Verified 11/21/21 22:37 in metoclopramide [From Reglan] AdvReac Intermediate Shakiness Verified 11/21/21 22:37 hydrocodone AdvReac Mild vomiting Verified 11/21/21 22:37 oxycodone AdvReac Mild Vomiting Verified 11/21/21 22:37 tramadol AdvReac Mild Vomiting Verified 11/21/21 22:37 EXAM Constitutional Vitals: Temp Pulse Resp BP Pulse Ox 98.2 F 77 16 109/48 90 11/21/21 22:32 11/22/21 02:31 11/22/21 02:31 11/22/21 02:31 11/22/21 02:31 DATA Data Completed and Pending Labs: Labs from last 24 hours 11/21/21 11/21/21 11/21/21 23:18 23:02 23:02 WBC RBC Hgb Hct MCV MCH MCHC RDW Plt Count MPV Neut % (Auto) Lymph % (Auto) [place] % (Auto) Eos % (Auto) Baso % (Auto) Lymph # (Auto) [place] # (Auto) Eos # (Auto) Baso # (Auto) Absolute Neutrophils Sodium 134 Potassium 4.1 Chloride 97 Carbon Dioxide 26 Anion Gap 11.0 BUN 17 Creatinine 0.6 GFR Calculation 90 Glucose 106 H Calcium 9.0 Magnesium 1.9 Total Bilirubin 0.2 AST 29 ALT 43 H Alkaline Phosphatase 93 Troponin T < 0.01 NT-Pro-B Natriuret Pep 93.1 Total Protein 6.4 Albumin 3.6 Globulin 2.8 Albumin/Globulin Ratio 1.3 Urine Color Yellow Urine Appearance Clear Urine pH 7.5 Ur Specific Toney 1.015 Urine Protein Negative Urine Glucose (UA) Negative Urine Ketones Negative Urine Occult Blood Small A Urine Nitrate Negative Urine Bilirubin Negative Urine Urobilinogen Normal Ur Leukocyte Esterase Trace A Urine RBC < 1 Urine WBC 6 H Ur Squamous Epith Cells 10 H Urine Bacteria None Ur Culture Indicated? No 11/21/21 23:02 WBC 20.1 H RBC 3.83 Hgb 11.8 Hct 35.2 MCV 91.9 MCH 30.8 MCHC 33.5 RDW 13.2 Plt Count 594 H MPV 9.6 Neut % (Auto) 74.7 Lymph % (Auto) 13.0 L [place] % (Auto) 10.7 Eos % (Auto) 1.2 Baso % (Auto) 0.4 Lymph # (Auto) 2.62 [place] # (Auto) 2.15 H Eos # (Auto) 0.25 Baso # (Auto) 0.09 Absolute Neutrophils 15.03 H Sodium Potassium Chloride Carbon Dioxide Anion Gap BUN Creatinine GFR Calculation Glucose Calcium Magnesium Total Bilirubin AST ALT Alkaline Phosphatase Troponin T NT-Pro-B Natriuret Pep Total Protein Albumin Globulin Albumin/Globulin Ratio Urine Color Urine Appearance Urine pH Ur Specific Toney Urine Protein Urine Glucose (UA) Urine Ketones Urine Occult Blood Urine Nitrate Urine Bilirubin Urine Urobilinogen Ur Leukocyte Esterase Urine RBC Urine WBC Ur Squamous Epith Cells Urine Bacteria Ur Culture Indicated? A/P Narrative A/P Narrative: Assessment: 71 year old female with a history of hypertension, hyperlipemia, depression, recent hospitalization for sepsis presumed secondary to pyelonephritis (negative urine cultures), multiple recent courses of antibiotics admitted for acute diverticulitis of the sigmoid colon. #Acute mild diverticulitis of sigmoid colon #Leukocytosis #Generalized weakness #Hypertension #Hyperlipidemia #Depression Plan -Admit to observation. -Augmentin 875 mg PO BID. -IV fluid. -Follow WBC, serial abdominal exams. -Hold home antihypertensives for now. -Full liquid diet for now, advance as tolerated. -DVT prophylaxis: Lovenox -Code status: Full -Disposition: home when stable Time Spent With Patient Time: Total time spent is greater than 50% in coordination of care (as documented) at patient's floor/unit and/or counseling patient:
[2021-11-22] MEDS ORDERED: oxyCODONE/APAP 5/325MG TABLET PO PRN (03:33)
[2021-11-22] MEDS ORDERED: ACETAMINOPHEN 325 MG TABLET PO PRN (03:33)
[2021-11-22] MEDS: 0.9 % SODIUM CHLORIDE 1,000 ML IV SCH ×2 (03:45→13:53)
[2021-11-22] MEDS: 0.9 % SODIUM CHLORIDE 10 ML SYRINGE IV SCH ×3 (06:08→20:05)
--- NOTE | 2021-11-22 06:23 | XRay Report ---
INDICATION: cough TECHNIQUE: AP portable upright chest x-ray COMPARISON: None FINDINGS: Lungs:Lungs are negative. No focal pulmonary parenchymal infiltrate or mass Heart, vascular:No significant cardiomegaly. Pulmonary vascularity is normal. No pulmonary edema or pulmonary congestion Mediastinum, wm:No mediastinal widening. No hilar mass Pleura:No pleural fluid. No pleural-based mass or calcification Skeletal:Negative. IMPRESSION: Negative AP chest x-ray Interpreted and Authenticated by: Brent Salmeron 11/22/21
--- NOTE | 2021-11-22 06:48 | Cat Scan Report ---
INDICATION: sepsis COMPARISON: Chest x-ray dated 11/21/2021 TECHNIQUE: Axial images were obtained through the chest,abdomen and pelvis. Sagittally and coronally reformatted images. 80ml Isovue 370 injected intravenously. FINDINGS: Examination was initially interpreted by [facility] Chest CT: Lungs:Mild centrilobular emphysema and both upper lobes. No focal pulmonary parenchymal infiltrate or mass. There is no evidence for pneumonia. Mediastinum:No pathologic mediastinal adenopathy. No hilar mass. Thoracic aorta is normal without aneurysmal dilatation Heart:No significant cardiomegaly. No pericardial effusion Pleura:No pleural fluid. No pleural-based mass. No pleural calcifications Axilla, supraclavicular regions, chest wall:No pathologic axillary or supraclavicular adenopathy Musculoskeletal:Negative thoracic spine. No compression fractures. No lytic lesions. No paraspinal mass. There are bone densities which are probably within the left subscapular recess. Appearance is consistent with multiple loose bodies. Abdomen/Pelvis: Liver:Negative liver. No focal intrahepatic mass. Liver contour is smooth. There is no ascites Gallbladder, bilary:No calcified gallstones. No gallbladder wall thickening or pericholecystic fluid. No dilated bile ducts Spleen:No splenomegaly. No focal intrasplenic abnormality. Normal enhancement of splenic and portal veins. Pancreas:No pancreatic mass. No peripancreatic abnormality Adrenal glands:Negative Kidneys,ureters,bladder:No solid renal mass. No hydronephrosis. No obstructing or nonobstructing calculi. 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 There is a 9 mm left upper pole cyst No hydroureter. No ureteral calculus. No bladder stone. No detectable bladder mass. Gastrointestinal: Prominent fecal material consistent with constipation. Mild sigmoid diverticulosis. There is mild pericolonic inflammatory change in the distal descending colon and junction with the sigmoid colon. Appearance is consistent with mild diverticulitis. There is no free air. No diverticular abscess. No detectable colonic mass. Negative small bowel. No mechanical small bowel obstruction. No bowel wall thickening. No focal abnormality. Negative stomach and duodenum. No focal abnormality. Appendix: The appendix is not well visualized. No evidence for appendicitis Vascular:No abdominal aortic aneurysm Lymphatic:No pathologic retroperitoneal or mesenteric adenopathy Mesentery, peritoneum:No free intraperitoneal fluid. No intra-abdominal abscess. No pneumoperitoneum Reproductive:Uterus is not identified. There is no adnexal mass Musculoskeletal:No compression fractures. No lytic lesions. Sacrum, pelvis, hips are negative. Multilevel degenerative disc disease in the lumbar spine There is no anterior abdominal wall or inguinal hernia IMPRESSION: 1. Mild diverticulitis at the junction of the descending colon and sigmoid colon 2. Mild centrilobular emphysema 3. Multilevel degenerative disc disease 4. Incidental benign left renal cyst and angiomyolipoma The exam was performed using radiation dose optimization techniques including, but not limited to, automated exposure control, adjustment of the mA and/or kV according to patient size and use of iterative reconstruction technique. Interpreted and Authenticated by: Brent Salmeron 11/22/21
[2021-11-22] MEDS ORDERED: ONDANSETRON 4 MG ODT TABLET SL PRN (07:33)
[2021-11-22] MEDS ORDERED: DULoxetine 20 MG CAPSULE PO SCH (09:00)
[2021-11-22] MEDS: ENOXAPARIN 40 MG/0.4 ML SYRINGE SQ SCH (09:05)
[2021-11-22] MEDS: CALCIUM W/VIT D3 500 MG TABLET PO SCH ×2 (09:06→20:02)
[2021-11-22] MEDS: GLUCOSAMINE/CHONDROITIN SULF A 1 CAP CAPSULE PO SCH ×2 (09:06→20:02)
[2021-11-22] MEDS: DOCUSATE SODIUM 100 MG CAPSULE PO SCH ×2 (09:07→19:52)
[2021-11-22] MEDS: AMOXICILLIN/POTASSIUM CLAV 875 MG TABLET PO SCH ×2 (09:07→17:59)
[2021-11-22] MEDS: ESTRADIOL 1 MG TABLET PO SCH (09:07)
[2021-11-22] MEDS: ONDANSETRON 4 MG/2 ML VIAL IV PRN ×2 (09:11→20:02)
[2021-11-22] MEDS: IBUPROFEN 600 MG TABLET PO PRN ×2 (11:44→20:02)
--- NOTE | 2021-11-22 12:18 | EKG ---
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
[2021-11-22] MEDS ORDERED: SENNOSIDES 1 TABLET PO SCH (21:00)
[2021-11-22] MEDS ORDERED: SIMVASTATIN 10 MG TABLET PO SCH (21:00)
[2021-11-23] MEDS: 0.9 % SODIUM CHLORIDE 1,000 ML IV SCH (01:12)
[2021-11-23] MEDS: 0.9 % SODIUM CHLORIDE 10 ML SYRINGE IV SCH (04:07)
[2021-11-23 07:11] LABS: Hematocrit 33.7 % (34.1-44.9); Mean Cell Volume 93.9 fL (80.0-100.0); Mean Corpuscular HGB Conc 32.6 g/dL (31.0-36.0); Mean Platelet Volume 9.8 fL (7.4-10.4); Platelet Count 514 K/mcL (140-440); RBC 3.59 M/mcL (3.59-5.38); Red Cell Distribution Width 13.5 % (11.5-14.5); WBC 11.1 K/mcL (4.5-11.0)
[2021-11-23 07:35] LABS: ALT/SGPT 34 U/L (<40); AST/SGOT 23 U/L (<32); Albumin 3.2 gm/dL (3.2-5.2); Albumin/Globulin Ratio 1.1 (1.0-2.3); Alkaline Phosphatase 78 U/L (39-117); Bilirubin,Direct < 0.2 mg/dL (0-0.3); Bilirubin,Total 0.5 mg/dL (0.1-1.0); Blood Urea Nitrogen 5 mg/dL (8-23); Calcium 8.6 mg/dL (8.6-10.4); Carbon Dioxide 28 mmol/L (22-30); Chloride 102 mmol/L (96-108); Globulin 2.8 gm/dL (2.2-3.7); Glomerular Filtration Rate 90; Glucose 83 mg/dL (70-105); Lactate Dehydrogenase 122 U/L (135-225); Phosphorous 2.6 mg/dL (2.5-4.5); Triglycerides 64 mg/dL (<150); Uric Acid 2.8 mg/dL (2.5-8.0)
[2021-11-23 08:42] LABS: Band Neutrophils % 9 % (0-10); Basophils % (Manual) 1 % (0-2); Eosinophils % (Manual) 1 % (0-7); Lymphocytes % 16 % (15-49); Monocytes % (Manual) 15 % (1-12); Platelet Estimate INCREASED (Normal); RBC Morphology NORMAL (Normal); Segmented Neutrophils % 58 % (38-78)
[2021-11-23] MEDS: CALCIUM W/VIT D3 500 MG TABLET PO SCH (08:51)
[2021-11-23] MEDS: DOCUSATE SODIUM 100 MG CAPSULE PO SCH (08:52)
[2021-11-23] MEDS: AMOXICILLIN/POTASSIUM CLAV 875 MG TABLET PO SCH (08:52)
[2021-11-23] MEDS: ENOXAPARIN 40 MG/0.4 ML SYRINGE SQ SCH (08:53)
--- NOTE | 2021-11-23 09:09 | Discharge Summary ---
Discharge Provider Provider Patient information: Note initiated : 11/23/21 at 9:08 am Service Date, if different from initiated Date: [] Patient: Florecita Branch 71 y/o F admitted on 11/22/21 for UTI symptoms. Chief Complaint: [] Date of admission: 11/22/21 03:26 Discharge date: 11/23/21 Primary care physician: Brent Calvo DO Consults: 11/22/21 Consult to Physician [CONS] Stat Comment: Consulting Provider: Warren Cesar Reason For Exam: Physician to Consult Discharge Meds Discharge Medications Home Medications antiarthritic combination no.2 900 mg tablet (glucosamine-chondroitin) 900 mg PO BID 07/06/17 [History Confirmed 11/22/21 Last Taken 11/21/21] calcium carbonate 500 mg-vitamin D3 10 mcg (400 unit) tablet (Calcium 500 + D) 1 tab PO BID 07/06/17 [History Confirmed 11/22/21 Last Taken 11/21/21] ginkgo biloba 40 mg capsule 40 mg PO BID 07/06/17 [History Confirmed 11/22/21 Last Taken 11/21/21] omega-3 fatty acids 1,000 mg capsule (Fish Oil Concentrate) 1,000 mg PO QDAY 07/06/17 [History Confirmed 11/22/21 Last Taken 11/21/21] colestipol 1 gram tablet 1 g PO PRN PRN tab 10/23/19 [History Confirmed 11/22/21 Last Taken Unknown] ibuprofen 600 mg tablet 600 mg PO Q8H PRN #20 tab 12/17/20 [Rx Confirmed 11/22/21 Last Taken 11/21/21 22:00] triamterene 37.5 mg-hydrochlorothiazide 25 mg tablet 1 tab PO QDAY #90 tab 01/02/21 [Rx Confirmed 11/22/21 Last Taken 11/21/21] pravastatin 10 mg tablet 10 mg PO QHS #90 tab 03/17/21 [Rx Confirmed 11/22/21 Last Taken 11/21/21] duloxetine 40 mg capsule,delayed release 40 mg PO QDAY #90 cap 08/26/21 [Rx Confirmed 11/22/21 Last Taken 11/21/21] estradiol 1 mg tablet 1 mg PO QDAY #90 tab 11/18/21 [Rx Confirmed 11/22/21 Last Taken 11/21/21] potassium chloride 10 mEq tablet,extended release(part/cryst) 10 meq PO QDAY #90 tab 11/18/21 [Rx Confirmed 11/22/21 Last Taken 11/21/21] ondansetron 4 mg disintegrating tablet 1 tab PO Q8HP PRN 11/22/21 [History Confirmed 11/22/21 Last Taken Unknown] acetaminophen 325 mg tablet (Tylenol) 650 mg PO Q6HP PRN #30 tab 11/23/21 [Rx Last Taken Unknown] amoxicillin-potassium clavulanate 1,000 mg-62.5 mg tablet,ext.rel 12hr (Augmentin XR) 1 tab PO BID 5 Days #10 tab 11/23/21 [Rx Last Taken Unknown] COURSE Hospital Course Hospital course: Ms. Branch is a 71 year old female with a history of hypertension, hyperlipemia, depression, recent hospitalization for sepsis presumed secondary to pyelonephritis (negative urine cultures), multiple recent courses of antibiotics presented to the ED for generalized weakness, fatigueand myalgias and found to have acute diverticulitis of the sigmoid colon on CT chest abdomen pelvis with contrast. Work-up was also remarkable for leukocytosis. [place] SARS-CoV-2 antigen negative. 11/23 Feels better today, WBC trending down. Tolerating oral intake. Discharged to home on Augmentin BID for 5 more days. Outpatient PT order for vestibular rehab. Physical exam Head: Atraumatic, normal inspection. Eyes: normal appearance, no scleral icterus. Neck: full ROM Respiratory: no respiratory distress. Cardiovascular: normal rate and rhythm, S1, S2. GI/Abdominal: soft, nontender, no guarding, rebound tenderness present left lower quadrant. Extremities: full range of motion, nontender. Neurological: CN II-XII intact, intact motor, intact sensation. Psychiatric: normal mood. Skin: warm, normal color Discharge diagnosis: Acute diverticulitis of sigmoid colon. Time Spent with Patient Time attestation: Total time spent providing and/or coordinating discharge services: EXAM Constitutional Vitals: Temp Pulse Resp BP Pulse Ox 97.4 F 74 16 125/57 97 11/23/21 08:00 11/23/21 08:00 11/23/21 08:00 11/23/21 08:00 11/23/21 08:00 Discharge Data Data Completed and Pending Labs on day of discharge: Labs from last 24 hours 11/23/21 11/23/21 05:49 05:49 WBC 11.1 H RBC 3.59 Hgb 11.0 L Hct 33.7 L MCV 93.9 MCH 30.6 MCHC 32.6 RDW 13.5 Plt Count 514 H MPV 9.8 Seg Neutrophils % 58 Band Neutrophils % 9 Lymphocytes % 16 Monocytes % (Manual) 15 H Eosinophils % (Manual) 1 Basophils % (Manual) 1 Platelet Estimate Increased A RBC Morphology Normal Sodium 137 Potassium 3.6 Chloride 102 Carbon Dioxide 28 Anion Gap 7.0 L BUN 5 L Creatinine 0.6 GFR Calculation 90 Glucose 83 Uric Acid 2.8 Calcium 8.6 Phosphorus 2.6 Magnesium 1.8 Total Bilirubin 0.5 Direct Bilirubin < 0.2 GGT 55 H AST 23 ALT 34 Alkaline Phosphatase 78 Lactate Dehydrogenase 122 L Total Protein 6.0 Albumin 3.2 Globulin 2.8 Albumin/Globulin Ratio 1.1 Triglycerides 64 Preliminary micro results at discharge 11/21/21 23:08 Blood Culture - Preliminary Blood 11/21/21 23:02 Blood Culture - Preliminary Blood Discharge Plan Patient/Caregiver Discharge Instructions Activity: increase activity as tolerated Diet: Regular Diet Prescriptions: New acetaminophen [Tylenol] 325 mg Tablet 650 mg PO Q6HP PRN (Reason: Per Pain Protocol/Fever > 101) Qty: 30 0RF amoxicillin-pot clavulanate [Augmentin XR] 1,000-62.5 mg tablet extended release 12 hr 1 tab PO BID 5 Days Qty: 10 0RF Continued triamterene-hydrochlorothiazid 37.5-25 mg tablet 1 tab PO QDAY Qty: 90 3RF Label Comments: Sometimes will take one tablet pravastatin 10 mg tablet 10 mg PO QHS Qty: 90 3RF duloxetine 40 mg capsule,delayed release(DR/EC) 40 mg PO QDAY Qty: 90 3RF omega-3 fatty acids [Fish Oil Concentrate] 1,000 mg capsule 1,000 mg PO QDAY 0RF calcium carbonate-vitamin D3 [Calcium 500 + D] 500 mg(1,250mg) -400 unit tablet 1 tab PO BID 0RF antiarthritic combination no.2 [glucosamine-chondroitin] 900 mg tablet 900 mg PO BID 0RF ginkgo biloba 40 mg capsule 40 mg PO BID 0RF colestipol 1 gram tablet 1 g PO PRN PRN (Reason: Diarrhea) 0RF Label Comments: Rx from Michelle Mustafa Rx Instructions: Up to 6 tablets/day ibuprofen 600 mg tablet 600 mg PO Q8H PRN (Reason: pain) Qty: 20 0RF estradiol 1 mg tablet 1 mg PO QDAY Qty: 90 3RF ondansetron 4 mg tablet,disintegrating 1 tab PO Q8HP PRN (Reason: Nausea) 0RF Discontinued amlodipine 5 mg tablet 2.5 mg PO QHS 0RF No Action potassium chloride 10 mEq tablet,ER particles/crystals 10 meq PO QDAY Qty: 90 3RF Other Ambulatory Orders: Physical Therapy at Discharge - General (Routine) Location: None Selected Ordered By: Warren Cesar Follow Up Plan Follow up with: Brent Calvo DO [Primary Care Provider] - Patient Disposition: Home, Self-Care Prognosis: Fair Rehab Potential: Fair Overall status at discharge: patient is progressing back to baseline Discharge Orders: Discharge Order (Routine); Ordered 11/23/21 Ordered By: Warren Cesar
[2021-11-23] MEDS: ESTRADIOL 1 MG TABLET PO SCH (09:29)
[2021-11-23] MEDS: GLUCOSAMINE/CHONDROITIN SULF A 1 CAP CAPSULE PO SCH (09:29)
== END 2021-11-23 11:05 | disposition home or self-care (01) ==
LOC: ED 22:31 → MEDSUR 22:31
PROVIDERS: ADMIT Internal Medicine; ATTEND Internal Medicine